=== PATIENT | female | born 1975 | race Hispanic/Latino ===

== ENCOUNTER 2017-07-19 23:51 | Emergency (ER) | payer BC ==
[~2017-07-19] VITALS: Ht 157.5 cm; Wt 99.8 kg
[~2017-07-19 23:51] MED LIST: CARAFATE1 GM/10 ML PO; NEXIUM40 MG PO
[2017-07-20] MEDS ORDERED: SODIUM CHLORIDE 0.9% 1000ML 1,000 ML IV ONE (00:15)
[2017-07-20 00:39] LABS: BASOPHILS % 0.3 % (0.0-1.0); BILIRUBIN,URINE NEGATIVE (NEGATIVE); CLARITY,URINE CLOUDY (CLEAR); COLOR,URINE YELLOW (YELLOW); EOSINOPHILS # (AUTO) 0.1 (0.0-0.4); EOSINOPHILS % 1.2 % (0.0-6.0); HEMATOCRIT 44.5 % (34.2-44.1); HEMOGLOBIN 14.8 g/dL (12.0-16.0); KETONES,URINE NEGATIVE (NEGATIVE); LEUKOCYTE ESTERASE ,URINE NEGATIVE (NEGATIVE); LYMPHOCYTES % 33.1 % (18.0-39.1); MEAN CORPUSCULAR HEMOGLOBIN 28.5 pg (28-32); MEAN CORPUSCULAR HGB CONC 33.3 g/dL (31-35); MEAN CORPUSCULAR VOLUME 85.6 fL (81-99); MONOCYTES # (AUTO) 0.5 (0.2-0.8); MONOCYTES % 5.6 % (4.4-11.3); NEUTROPHILS # (AUTO) 5.3 (2.1-6.9); NEUTROPHILS % 59.6 % (38.7-80.0); NITRITE,URINE NEGATIVE (NEGATIVE); PLATELET COUNT 267 x10e3/uL (140-360); PROTEIN,URINE DIPSTICK NEGATIVE (NEGATIVE); RED CELL DISTRIBUTION WIDTH 13.2 % (11.7-14.4); URINE UROBILINOGEN 1 mg/dL (0.2 - 1)
[2017-07-20 00:51] LABS: BACTERIA,URINE FEW /HPF; EPITHELIAL CELLS,URINE FEW /LPF; WBC,URINE (MAN) 0-5 /HPF (0-5)
[2017-07-20 01:24] LABS: ALANINE AMINOTRANSFERASE 20 IU/L (0-55); ALBUMIN 3.9 g/dL (3.5-5.0); ALKALINE PHOSPHATASE 110 IU/L (40-150); ANION GAP 13.6 mmol/L (8-16); BLOOD UREA NITROGEN 13 mg/dL (7-26); BUN/CREATININE RATIO 14 (6-25); CALCIUM 9.6 mg/dL (8.4-10.2); CARBON DIOXIDE 27 mmol/L (22-29); CHLORIDE 98 mmol/L (98-107); CREATININE, SERUM 0.96 mg/dL (0.57-1.11); EST GLOMERULAR FILTRATION RATE > 60 ML/MIN (60-); GLUCOSE 267 mg/dL (74-118); POTASSIUM 3.6 mmol/L (3.5-5.1); SODIUM 135 mmol/L (136-145)
[2017-07-20 01:36] VITALS: BP 115/73
== END 2017-07-20 01:42 | disposition home or self-care (01) ==
LOC: ER 23:51
DX: E11.65 Type 2 diabetes mellitus with hyperglycemia (principal)
CPT/HCPCS: 36415; 80053; 81001; 82948; 85025; 93005; 99283; J7030

== ENCOUNTER 2018-12-15 17:41 | Inpatient (IN) | payer BC ==
[~2018-12-15] VITALS: Ht 157.5 cm; Wt 92.0 kg
[2018-12-15 18:15] LABS: BILIRUBIN,URINE NEGATIVE (NEGATIVE); CLARITY,URINE SL CLOUDY (CLEAR); COLOR,URINE YELLOW (YELLOW); KETONES,URINE NEGATIVE (NEGATIVE); LEUKOCYTE ESTERASE ,URINE NEGATIVE (NEGATIVE); NITRITE,URINE NEGATIVE (NEGATIVE); PROTEIN,URINE DIPSTICK NEGATIVE (NEGATIVE); URINE UROBILINOGEN 0.2 mg/dL (0.2 - 1)
[2018-12-15 18:16] LABS: PREGNANCY TEST, URINE NEGATIVE (NEGATIVE)
[2018-12-15 18:29] LABS: WBC,URINE (MAN) 0-5 /HPF (0-5)
[2018-12-15 18:30] LABS: BACTERIA,URINE MODERATE /HPF; EPITHELIAL CELLS,URINE MODERATE /LPF
[2018-12-15] MEDS ORDERED: PANTOPRAZOLE 40 MG 10ML VIAL IV ONE (19:04)
[2018-12-15 19:14] LABS: BASOPHILS % 0.3 % (0.0-1.0); EOSINOPHILS # (AUTO) 0.1 (0.0-0.4); EOSINOPHILS % 0.8 % (0.0-6.0); HEMOGLOBIN 15.1 g/dL (12.0-16.0); LYMPHOCYTES # (AUTO) 2.6 (1.0-3.2); LYMPHOCYTES % 22.4 % (18.0-39.1); MEAN CORPUSCULAR HEMOGLOBIN 29.5 pg (28-32); MEAN CORPUSCULAR HGB CONC 33.6 g/dL (31-35); MEAN CORPUSCULAR VOLUME 88.1 fL (81-99); MONOCYTES # (AUTO) 0.5 (0.2-0.8); MONOCYTES % 4.3 % (4.4-11.3); NEUTROPHILS # (AUTO) 8.4 (2.1-6.9); NEUTROPHILS % 71.8 % (38.7-80.0); PLATELET COUNT 291 x10e3/uL (140-360); RED BLOOD COUNT 5.11 x10e6/uL (3.6-5.1); RED CELL DISTRIBUTION WIDTH 12.7 % (11.7-14.4)
[2018-12-15] MEDS ORDERED: DICYCLOMINE HCL 20 MG/2 ML VIAL IM ONE (19:15)
[2018-12-15 19:29] LABS: ALANINE AMINOTRANSFERASE 15 IU/L (0-55); ALBUMIN 4.1 g/dL (3.5-5.0); ALBUMIN/GLOBULIN RATIO 1.1 (0.8-2.0); ALKALINE PHOSPHATASE 84 IU/L (40-150); ANION GAP 15.7 mmol/L (8-16); BLOOD UREA NITROGEN 18 mg/dL (7-26); BUN/CREATININE RATIO 25 (6-25); CALCIUM 10.1 mg/dL (8.4-10.2); CARBON DIOXIDE 26 mmol/L (22-29); CHLORIDE 101 mmol/L (98-107); CREATININE, SERUM 0.73 mg/dL (0.57-1.11); EST GLOMERULAR FILTRATION RATE > 60 ML/MIN (60-); GLUCOSE 103 mg/dL (74-118); POTASSIUM 3.7 mmol/L (3.5-5.1); SODIUM 139 mmol/L (136-145)
[2018-12-15] MEDS ORDERED: SODIUM CHLORIDE 0.9% 1000ML 1,000 ML IV ONE (21:30)
--- NOTE | 2018-12-15 21:41 | Diagnostic Imaging Report ---
EXAM: CT of the abdomen and pelvis WITH contrast HISTORY: Stomach pain, elevated lipase, hiatal hernia COMPARISON: None. TECHNIQUE: The abdomen and pelvis were scanned utilizing a multidetector helical scanner. Coronal and sagittal reformats are provided. PROTOCOL: Routine IV CONTRAST: 100 cc of Isovue-370. ORAL CONTRAST: None, which limits sensitivity and specificity of the exam. RADIATION DOSE: Total DLP: 717.39 mGy*cm Estimated effective dose: (DLP x 0.015 x size factor) Dose modulation, iterative reconstruction, and/or weight based adjustment of the mA/kV was utilized to reduce the radiation dose to as low as reasonably achievable. COMPLICATIONS: None FINDINGS: LOWER THORAX: Diffuse thickening of the distal esophageal wall. HEPATOBILIARY: No mass. No biliary dilation. The gallbladder is contracted, no calcified stone. SPLEEN: No splenomegaly. A 2.1 cm splenule anterior to the spleen. PANCREAS: No focal masses or ductal dilatation. The pancreas appears edematous with fat stranding adjacent to the body and tail. No associated fluid collection. ADRENALS: No discrete adrenal nodule. KIDNEYS/URETERS: No hydronephrosis, stones, or definite solid mass lesions. PELVIC ORGANS/BLADDER: The uterus is anteflexed. A 1.1 cm hypodensity near the right side of the fundus, likely a small fibroid. GI TRACT: No dilation or wall thickening identified. The appendix is normal. PERITONEUM / RETROPERITONEUM: No free air or fluid. LYMPH NODES: No pathologically enlarged lymph node. VESSELS: Unremarkable. BONES and JOINTS: No aggressive osseous lesion or acute fracture. A 1.1 cm nonaggressive sclerotic density within the right sacral ala, likely a small bone island. SOFT TISSUES: Unremarkable. IMPRESSION: 1. Acute pancreatitis, no associated fluid collection. 2. Findings suggestive of esophagitis. 3. Small uterine fibroid. Signed by: Dr. Sylvester Lin D.O., M.M.M. on 12/15/2018 9:38 PM
[2018-12-15] MEDS ORDERED: FENTANYL CITRATE/PF 100MCG/2 ML INJ IV ONE (22:00)
--- NOTE | 2018-12-15 23:12 | NUR ---
REPORT GIVEN TO ELVER ROJAS.
[2018-12-15] MEDS ORDERED: MORPHINE SULFATE INJ 4 MG/ML INJ 1ML IV PRN (23:30)
--- OUTSIDE RECORDS SUMMARY | 2018-12-15 23:38 | XMS REPORT ---
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 Allergies, Adverse Reactions, Alerts This patient has no known allergies or adverse reactions. Medications This patient has no known medications. Results Test Description Test Time Test Comments Text Results Atomic Results Result Comments CT ABDOMEN/PELVIS W 2018-12-15 21:27:00 [place] [address] Patient Name: NINFA LEIGH MR #: [id number] : 1975 Age/Sex: 43/F Req #: [id number] [facility] Physician: Ordered by: JUWAN NUNEZ MD Report #: [id number] Location: ER Room/Bed: Procedure: [id number] CT/CT ABDOMEN/PELVIS W Exam Date: 12/15/18 Exam Time: 2109 REPORT STATUS: Signed EXAM: CT of the abdomen and pelvis WITH contrast HISTORY: Stomach pain, elevated lipase, hiatal hernia COMPARISON: None. TECHNIQUE: The abdomen and pelvis were scanned utilizing a multidetector helical scanner. Coronal and sagittal reformats are provided. PROTOCOL: Routine IV CONTRAST: 100 cc of Isovue-370. ORAL CONTRAST: None, which limits sensitivity and specificity of the exam. RADIATION DOSE: Total DLP: 717.39 mGy*cm Estimated effective dose: (DLP x 0.015 x size factor) Dose modulation, iterative reconstruction, and/or weight based adjustment of the mA/kV was utilized to reduce the radiation dose to as low as reasonably achievable. COMPLICATIONS: None FINDINGS: LOWER THORAX: Diffuse thickening of the distal esophageal wall. HEPATOBILIARY: No mass. No biliary dilation. The gallbladder is contracted, no calcified stone. SPLEEN: No splenomegaly. A 2.1 cm splenule anterior to the spleen. PANCREAS: No focal masses or ductal dilatation. The pancreas appears edematous with fat stranding adjacent to the body and tail. No associated fluid collection. ADRENALS: No discrete adrenal nodule. KIDNEYS/URETERS: No hydronephrosis, stones, or definite solid mass lesions. PELVIC ORGANS/BLADDER: The uterus is anteflexed. A 1.1 cm hypodensity near the right side of the fundus, likely a small fibroid. GI TRACT: No dilation or wall thickening identified. The appendix is normal. PERITONEUM / RETROPERITONEUM: No free air or fluid. LYMPH NODES: No pathologically enlarged lymph node. VESSELS: Unremarkable. BONES and JOINTS: No aggressive osseous lesion or acute fracture. A 1.1 cm nonaggressive sclerotic density within the right sacral ala, likely a small bone island. SOFT TISSUES: Unremarkable. IMPRESSION: 1. Acute pancreatitis, no associated fluid collection. 2. Findings suggestive of esophagitis. 3. Small uterine fibroid. Signed by: Dr. Steph Lin D.O., M.M.M. on 12/15/2018 9:38 PM Dictated By: STEPH LIN DO 37 Transcribed By: KRISTINE on 12/15/182137 COPY TO: JUWAN NUNEZ MD
[2018-12-15] MEDS ORDERED: IOPAMIDOL 370 MG/ML 200 ML INFUS..BTL INJ ONE (23:48)
[2018-12-15] MEDS ORDERED: SODIUM CHLORIDE 0.9% 50ML 50 ML ONE (23:48)
[2018-12-16] VITALS (9 sets, daily range): BP systolic 87–114; BP diastolic 50–82
[2018-12-16] MEDS: ONDANSETRON HCL INJ 2MG/ML 2ML 2 MG/ML VIAL IV PRN
--- NOTE | 2018-12-16 00:13 | NUR ---
RECEIVED PATIENT AAOX3, AMB., REPORTS PAIN TO LUQ OF 10- RECENTLY MEDICATED FOR PAIN IN ER. SKIN INTACT. PATIENT ON 2L/NC. IV TO LEFT WRIST 22G, NS @ 125ML/HR. RESP EVEN AND UNLABORED. UPDATED PATIENT ON PLAN OF CARE, PATIENT AGREED. REMINDED PATIENT OF NPO STATUS, PATIENT VERBALIZED UNDERSTANDING. NO NEEDS VOICED AT THIS TIME. BED LOCKED AND IN LOWEST POSITION, CALL LIGHT WITHIN EASY REACH.
--- NOTE | 2018-12-16 01:15 | NUR ---
PATIENT C/O PAIN AFTER 1 HOUR OF RECEIVING PRN MORPHINE. SPOKE WITH DR. AGUERO, ORDERS TO CHANGE FREQUENCY TO Q3 HOURS. AND ORDERS RECEIVED GIVE X1 TORADOL IV. ORDERS TO BE ENTERED AND IMPLEMENTED.
[2018-12-16] MEDS ORDERED: KETOROLAC TROMETHAMINE 30 MG/ML VIAL IV STA (01:20)
[2018-12-16] MEDS ORDERED: MORPHINE SULFATE INJ 4 MG/ML INJ 1ML IV PRN (01:30)
[2018-12-16 05:58] LABS: BASOPHILS % 0.4 % (0.0-1.0); EOSINOPHILS # (AUTO) 0.1 (0.0-0.4); EOSINOPHILS % 1.4 % (0.0-6.0); HEMATOCRIT 40.6 % (34.2-44.1); HEMOGLOBIN 13.3 g/dL (12.0-16.0); LYMPHOCYTES # (AUTO) 3.3 (1.0-3.2); MEAN CORPUSCULAR HEMOGLOBIN 29.4 pg (28-32); MEAN CORPUSCULAR HGB CONC 32.8 g/dL (31-35); MEAN CORPUSCULAR VOLUME 89.8 fL (81-99); MONOCYTES # (AUTO) 0.6 (0.2-0.8); MONOCYTES % 5.5 % (4.4-11.3); NEUTROPHILS # (AUTO) 6.2 (2.1-6.9); NEUTROPHILS % 60.3 % (38.7-80.0); PLATELET COUNT 252 x10e3/uL (140-360); RED BLOOD COUNT 4.52 x10e6/uL (3.6-5.1); RED CELL DISTRIBUTION WIDTH 12.9 % (11.7-14.4)
[2018-12-16 06:16] LABS: ALANINE AMINOTRANSFERASE 11 IU/L (0-55); ALBUMIN 3.4 g/dL (3.5-5.0); ALBUMIN/GLOBULIN RATIO 1.1 (0.8-2.0); ALKALINE PHOSPHATASE 68 IU/L (40-150); ANION GAP 10.4 mmol/L (8-16); BLOOD UREA NITROGEN 15 mg/dL (7-26); BUN/CREATININE RATIO 21 (6-25); CALCIUM 8.8 mg/dL (8.4-10.2); CARBON DIOXIDE 28 mmol/L (22-29); CHLORIDE 108 mmol/L (98-107); EST GLOMERULAR FILTRATION RATE > 60 ML/MIN (60-); GLUCOSE 102 mg/dL (74-118); MAGNESIUM 2.3 MG/DL (1.3-2.1); PHOSPHORUS 4.1 MG/DL (2.3-4.7); POTASSIUM 4.4 mmol/L (3.5-5.1); SODIUM 142 mmol/L (136-145)
--- NOTE | 2018-12-16 07:00 | NUR ---
report given to oncoming nurse, patient stable condition.
--- NOTE | 2018-12-16 07:30 | NUR ---
TELEPHONED MD FISHER PER PT REQUEST , "PAIN MEDIATION IS NOT HELPING", AWAITING CALL BACK
[2018-12-16] MEDS: SODIUM CHLORIDE 0.9% 1000ML 1,000 ML IV SCH ×3 (07:42→15:15)
[2018-12-16] MEDS: KETOROLAC TROMETHAMINE 30 MG/ML VIAL IV PRN ×3 (08:45→20:14)
--- NOTE | 2018-12-16 12:30 | NUR ---
MD AGUERO INTO SEE PT, DISCUSSED POC
--- NOTE | 2018-12-16 16:09 | History and Physical ---
HISTORY OF PRESENT ILLNESS: The patient is essentially a 43-year-old female, who has a past medical history negative for any significant condition except for diabetes mellitus type 2, who came to the hospital complaining of abdominal pain and vomiting. She was found to have acute pancreatitis, started on n.p.o., IV fluids, and pain medication. REVIEW OF SYSTEMS: CARDIOVASCULAR: No chest pain or palpitation. RESPIRATORY: No shortness of breath. No cough. GASTROINTESTINAL: She had nausea. She has vomiting. No diarrhea. She had abdominal pain. GENITOURINARY: No frequency. No dysuria. ALLERGIES: NOT ALLERGIC TO ANY MEDICATION. SOCIAL HISTORY: She drinks occasionally. She smokes occasionally. PHYSICAL EXAMINATION: HEART: Showed regular rhythm. Normal S1 and S2 sound. LUNGS: Clear bilaterally. ABDOMEN: Soft. Minimal tenderness in epigastric area. EXTREMITIES: Show no evidence of cyanosis or hematoma. VITAL SIGNS: Blood pressure 92/58, temperature 36.5, heart rate 61 per minute, respiratory rate 15 per minute, and oxygen saturation 99%. LABORATORY DATA: On the BMP; sodium 142, potassium 4.4, chloride 108, CO2 28, BUN 15, creatinine 0.70, and glucose 102. CBC; white blood count 10.3, hemoglobin 13.3, hematocrit 40.6, and platelet count 252,000. AST 11, ALT 11, total bilirubin 0.6, alkaline phosphatase 68, lipase 456. IMPRESSION: 1. Acute pancreatitis. 2. Uncontrolled diabetes mellitus type 2. 3. Obesity. PLAN OF TREATMENT: P.o. IV fluids. Continue pain control. Continue monitoring CMP and lipase level. MD CHIOMA Hunt/MANDA /[id number]
--- NOTE | 2018-12-16 16:37 | NUR ---
Nutrition Screen Note RD Recommendation for Physician: 1. Advance diet as tolerated to low fat diet Plan of Care: RD following, monitoring for tolerance and adequacy, diet education Nutrition reason for involvement: Nutrition Risk Trigger MST Primary Diagnose(s): Pancreatitis PMH: Acute pancreatitis, Diabetes Ht: 62in Wt: 183lbs BMI: 33.46 kg/m2 IBW: 110lbs +/- 10% RD Assessment: (12/16) Chart reviewed. Labs and meds reviewed. 43 y/o F, admitted for pancreatitis. Lipase was 456 on 12/15. Visited pt in the room, family at bedside. IVF running at 125mL/hr. Patient currently NPO. Pt reported following keto diet prior to admission. Noted abdominal pain and diarrhea during the past week. No significant recent weight loss noted. RD provided information on pancreatitis low-fat diet and pt was agreeable. All questions were answered, will continue to monitor and follow. Current Diet: NPO Malnutrition Evaluation (12/16) The patient does not meet criteria for a specified degree of malnutrition at this time. Will re-evaluate at follow-up as appropriate. Diet Education Needs Assessment: Diet education indicated, pt was agreeable. Learner(s): pt and family members Time spent: 20minutes Barriers: No barriers identified. Cultural/Language Modifications: No cultural/language modifications noted. Pt speaks Lao. Readiness: Acceptance Method: Handout, explanation Topics: Pancreatitis low fat diet Understanding/Compliance: Expect fair understanding/compliance from pt. Will benefit from reinforcement. Nutrition Care Level: Moderate Signed: Selina ARDON
--- NOTE | 2018-12-16 23:46 | NUR ---
called answering service of dr Munson, making sure he aware of consult also need order for pain medicine. awaiting for call back.
--- NOTE | 2018-12-16 23:57 | NUR ---
dr Terrell called back, stated he will come to see patient in the morning, no order at this time.
[2018-12-17] VITALS (9 sets, daily range): BP systolic 93–112; BP diastolic 56–72
[2018-12-17] MEDS: KETOROLAC TROMETHAMINE 30 MG/ML VIAL IV PRN ×4 (01:30→20:19)
[2018-12-17] MEDS: SODIUM CHLORIDE 0.9% 1000ML 1,000 ML IV SCH ×4 (01:31→17:02)
[2018-12-17 05:58] LABS: ALANINE AMINOTRANSFERASE 10 IU/L (0-55); ALBUMIN 3.1 g/dL (3.5-5.0); ALKALINE PHOSPHATASE 70 IU/L (40-150); BLOOD UREA NITROGEN 8 mg/dL (7-26); BUN/CREATININE RATIO 12 (6-25); CALCIUM 8.4 mg/dL (8.4-10.2); CARBON DIOXIDE 25 mmol/L (22-29); CHLORIDE 108 mmol/L (98-107); CREATININE, SERUM 0.68 mg/dL (0.57-1.11); EST GLOMERULAR FILTRATION RATE > 60 ML/MIN (60-); GLUCOSE 85 mg/dL (74-118); LIPASE 78 U/L (8-78); SODIUM 140 mmol/L (136-145)
--- NOTE | 2018-12-17 10:30 | NUR ---
MD TURNER INTO SEE PT
[2018-12-17] MEDS ORDERED: PANTOPRAZOLE SOD 40 MG TABEC PO ONE (11:00)
--- NOTE | 2018-12-17 12:23 | Progress Note ---
DATE: Internal Medicine Progress Note SUBJECTIVE: The patient is feeling better. PHYSICAL EXAMINATION: VITAL SIGNS: Blood pressure 109/62, temperature , heart rate 86 per minute, respiratory rate 15 per minute, oxygen saturation 100%. HEART: Regular rhythm. Normal S1, S2 sound. LUNGS: Clear bilaterally. ABDOMEN: Soft, nontender. No distention. No visceromegaly. LABORATORY DATA: On the BMP; sodium 140, potassium 4.0, chloride 108, CO2 25, BUN 8, creatinine 0.66, glucose 85. On CBC; white count 43681, hemoglobin 13.3, hematocrit 40.6, platelet count 252,000. AST 10, ALT 10, total bilirubin is 0.9, alkaline phosphatase 77. IMPRESSION: 1. Acute pancreatitis, which is resolving. The last lipase was 78. 2. History of hypertension. We are going to continue monitoring lipase and liver function tests, diet, lipase level tomorrow. Tentative discharge tomorrow. MD CHIOMA Hunt/MANDA /[id number]
--- NOTE | 2018-12-17 15:35 | NUR ---
TELEPHONED MD AGUERO , PT C/O PAIN , PAIN MEDIATION ORDERED NOT LASTING UNTIL DUE, SPOKE WITH RAJI , AWAITING CALL BACK
[2018-12-17] MEDS: HYDROCODONE/APAP 5MG-325MG TAB PO PRN ×3 (15:58→23:29)
--- NOTE | 2018-12-17 18:08 | Consultation ---
DATE OF CONSULTATION: 12/17/2018 REASON FOR CONSULTATION: Pancreatitis. HISTORY OF PRESENT ILLNESS: Karen is a pleasant 43-year-old female with apparently, diet-controlled diabetes mellitus, consulted in the emergency room, complaining of abdominal pain. The patient claims that she started having pain earlier this week, changed her diet, the pain was mainly in the abdomen, the periumbilical area, radiating to the back, with no nausea or vomiting. The pain persisted, leading for her to come to the emergency room. She was found to have pancreatitis, admitted, and a GI consult has been placed. She denies any alcohol abuse, denies any new diabetic medications, denies any recent travelling, previous workup for ultrasound of the gallbladder was negative. Since admission, she has improved and the pain has also improved. PAST MEDICAL HISTORY: As in HPI. FAMILY HISTORY: Noncontributory. SOCIAL HISTORY: She does not smoke or drink. REVIEW OF SYSTEMS: As in HPI. ALLERGIES: NO KNOWN DRUG ALLERGIES. PHYSICAL EXAMINATION: VITAL SIGNS: Well within normal limits. GENERAL: Pleasant, middle-aged female, in no distress. HEENT: Unremarkable. NECK: Supple. LUNGS: Clear. HEART: Regular rate and rhythm. ABDOMEN: Soft with mild periumbilical discomfort. No rebound or guarding. Bowel sounds are normal. RECTAL: Deferred. LABORATORY DATA: On admission, white count was 11,000, hemoglobin 15, hematocrit 45. Repeat labs today show a hemoglobin of 13, hematocrit of 40 with a white count of 10,000. Blood chemistry on admission, electrolytes were normal. Liver function tests were normal. Lipase on admission was 456. Repeat lipase today was 78. Lipid panel that was done today was unremarkable. IMAGING STUDIES: CT scan of abdomen and pelvis showed evidence of acute pancreatitis with no fluid collection. There was also evidence of possible esophagitis. ASSESSMENT: Middle-aged female, admitted with acute pancreatitis, probably idiopathic. Gallbladder disease has not been completely ruled out. PLAN: 1. We will start liquid diet. 2. We will check abdominal ultrasound. 3. If pain is better and tolerates p.o., she can probably be discharged home in a.m. Ton Terrell MD FES/MODL /[id number]
--- NOTE | 2018-12-17 20:33 | NUR ---
PATIENT CALLED FOR SOMETHING FOR PAIN, SHE STATED THAT SHE GET NORCO BY MOUTH AROUND 4 PM. PAIN LEVEL AT THIS TIME IS 6/10,TORADOL GIVEN, WILL CONTINUE TO MONITOR.
[2018-12-18] VITALS: BP 118/62
[2018-12-18 04:00] VITALS: BP 111/63
[2018-12-18 06:36] LABS: BASOPHILS % 0.3 % (0.0-1.0); EOSINOPHILS # (AUTO) 0.2 (0.0-0.4); EOSINOPHILS % 2.1 % (0.0-6.0); HEMATOCRIT 35.6 % (34.2-44.1); HEMOGLOBIN 11.6 g/dL (12.0-16.0); LYMPHOCYTES # (AUTO) 2.2 (1.0-3.2); MEAN CORPUSCULAR HEMOGLOBIN 29.6 pg (28-32); MEAN CORPUSCULAR HGB CONC 32.6 g/dL (31-35); MEAN CORPUSCULAR VOLUME 90.8 fL (81-99); MONOCYTES # (AUTO) 0.6 (0.2-0.8); MONOCYTES % 6.8 % (4.4-11.3); NEUTROPHILS # (AUTO) 6.3 (2.1-6.9); NEUTROPHILS % 67.4 % (38.7-80.0); PLATELET COUNT 229 x10e3/uL (140-360); RED BLOOD COUNT 3.92 x10e6/uL (3.6-5.1); RED CELL DISTRIBUTION WIDTH 12.9 % (11.7-14.4)
[2018-12-18 06:57] LABS: ALANINE AMINOTRANSFERASE 19 IU/L (0-55); ALBUMIN 2.9 g/dL (3.5-5.0); ALKALINE PHOSPHATASE 72 IU/L (40-150); ANION GAP 9.6 mmol/L (8-16); BLOOD UREA NITROGEN < 5 mg/dL (7-26); CALCIUM 8.6 mg/dL (8.4-10.2); CARBON DIOXIDE 25 mmol/L (22-29); CHLORIDE 105 mmol/L (98-107); CREATININE, SERUM 0.66 mg/dL (0.57-1.11); EST GLOMERULAR FILTRATION RATE > 60 ML/MIN (60-); GLUCOSE 99 mg/dL (74-118); POTASSIUM 3.6 mmol/L (3.5-5.1); SODIUM 136 mmol/L (136-145)
[2018-12-18 07:06] LABS: BUN/CREATININE RATIO 8 (6-25)
[2018-12-18 07:33] LABS: ALBUMIN 2.9 g/dL (3.5-5.0); BILIRUBIN,DIRECT 0.4 mg/dL (0.0-0.5)
[2018-12-18 08:00] VITALS: BP 99/54
[2018-12-18] MEDS: SODIUM CHLORIDE 0.9% 1000ML 1,000 ML IV SCH ×3 (08:14→23:25)
--- NOTE | 2018-12-18 10:15 | Diagnostic Imaging Report ---
Abdominal ultrasound. History: Pancreatitis. Comparison: CT 12/15/2018. Discussion: Transverse and longitudinal images of the abdomen were obtained demonstrating a liver of normal size and echogenicity measuring 16.1 cm in length. The portal vein is patent with hepatopetal flow and is within normal limits measuring 11 mm in diameter. The biliary tree is within normal limits with the common bile duct measuring 6 mm in diameter. The gallbladder is filled with multiple shadowing stones. The gallbladder wall measures 6 mm in thickness.. The sonographic Knapp's sign was negative. The kidneys are normal in size and echogenicity bilaterally without evidence of hydronephrosis, stones, or mass. The right kidney measures 10.7 cm and the left kidney measures 10.9 cm in length. The spleen is normal in size and appearance measuring 11.4 cm in length. The pancreas was mostly obscured by overlying bowel gas, but does appear echogenic in the visible head and proximal body. The abdominal aorta and IVC are within normal limits. There is no evidence of free fluid. IMPRESSION: Cholelithiasis with gallbladder wall thickening, but negative sonographic Knapp sign. Pancreas not well visualized. Otherwise unremarkable abdominal ultrasound. Signed by: Bharat Griffiths on 12/18/2018 10:12 AM
[2018-12-18 11:56] VITALS: BP 103/57
--- NOTE | 2018-12-18 16:00 | NUR ---
PT OFF FOR HIDA SCAN
--- NOTE | 2018-12-18 17:53 | NUR ---
SPOKE WITH MD ALMONTE WHO ORDERED PT TO HAVE 3MG OF MORPHINE NOW FOR A BETTER VIEW OF GALL BLADDER DURING HIDA SCAN WILL ADMINISTER DOSE AT NUC MED WHEN MED VERIFIED
[2018-12-18] MEDS ORDERED: MORPHINE SULFATE INJ 4 MG/ML INJ 1ML IV ONE (18:20)
[2018-12-18 20:00] VITALS: BP 131/61
--- NOTE | 2018-12-18 20:00 | NUR ---
Patient came back from procedure. Alert and responsive. No complain at this time.
--- NOTE | 2018-12-18 20:29 | Diagnostic Imaging Report ---
HIDA Scan with Morphine Challenge Clinical information: 43 F with pancreatitis Report: Following the administration of 6.6 of Tc-99m mebrofenin, dynamic images of the abdomen in the anterior projection were obtained through 60 minutes. At 2.5 hours post administration of the tracer, morphine sulfate 3 mg was administered via slow IV push and additional images were obtained through 30 minutes. Perfusion to the liver is normal. Extraction of tracer by the liver parenchyma is normal. Tracer appears promptly within the biliary tract. Tracer is seen within the small bowel by 6 minutes. The gallbladder does not fill during the initial 60 minutes of dynamic imaging nor by 2.5 hours. Following administration of morphine, the gallbladder also does not fill. Impression: Absence of filling of the gallbladder, even following administration of morphine, is compatible with the diagnosis of acute cystic duct obstruction/acute cholecystitis. Signed by: Dr. Liane Mcallister M.D. on 12/18/2018 8:25 PM
--- NOTE | 2018-12-18 20:30 | NUR ---
Paged Dr. Garcia for diet orders. Waiting for response.
[2018-12-18 21:37] VITALS: BP 131/61
[2018-12-18] MEDS: KETOROLAC TROMETHAMINE 30 MG/ML VIAL IV PRN (21:44)
--- NOTE | 2018-12-18 23:01 | NUR ---
Page Dr. Castelan for this consultation.
--- NOTE | 2018-12-18 23:13 | NUR ---
Spoke with Dr. Townsend Patient can have clear liquids tonight and will be NPO after midnight until seen by Dr. Shelley.
--- NOTE | 2018-12-18 23:14 | NUR ---
Spoke with Dr. Shelley thru phone regarding consultation.
[2018-12-19] VITALS (8 sets, daily range): BP systolic 92–115; BP diastolic 52–68
--- NOTE | 2018-12-19 01:10 | Progress Note ---
DATE: 12/18/2018 GI Progress Report SUBJECTIVE: The patient reports improvement in abdominal pain. Denies any nausea or vomiting. REVIEW OF SYSTEMS: GENERAL: No fever or chills. CVS: No chest pain or palpitations. RESPIRATORY: No cough or expectoration. MEDICATIONS: Inpatient medication list reviewed. She is on Ketoralac, hydrocodone/acetaminophen, Zofran and normal saline at 125 mL an hour. PHYSICAL EXAMINATION: VITAL SIGNS: Temperature 97.8, pulse 63, respirations 18, blood pressure 131/61, oxygen saturation 98% on room air. GENERAL: Not in any acute distress. Obese body habitus. HEENT: Oral mucosa is moist. ABDOMEN: Soft. Mild palpable right upper quadrant tenderness on deep palpation without rebound, rigidity, or guarding. No mass or hernia. Bowel sounds present. LABORATORY DATA: Sodium 139, potassium 3.6, chloride 106, bicarb 25, BUN 5, and creatinine 0.66. Liver enzymes normal. Ultrasound of the abdomen showed cholelithiasis with gallbladder wall thickening, negative sonographic Knapp sign. Pancreas not visualized. Otherwise unremarkable abdominal ultrasound. HIDA scan showed absence of filling of gallbladder, even following administration of morphine, is compatible with diagnosis of acute cystic duct obstruction/acute cholecystitis. IMPRESSION: 1. Gallstone pancreatitis, which seems to have resolved. 2. Acute cholecystitis proven with HIDA scan. PLAN: Continue present supportive care. Hold onto oral feeds. Surgery consult. Moses Townsend MD SA/MANDA /[id number]
--- NOTE | 2018-12-19 07:00 | NUR ---
PT RESTING IN BED COMFORTABLY AA0X3 DENIES PAIN. PT FAM AT BEDSIDE PT IS ON IV FLUIDS TO THE LEFT WRIST 22 SITE IS CLEAN AND DRY PT IS NPO FOR POSSIBLE SURGERY TODAY. PT AWARE WAITING ON GOMEZ TO SEE PT AT THIS TIME WILL CONTINUE TO MONITOR PT CLOSELY SIDE RAILSX2, BED WHEELS LOCKED, CALL LIGHT IS WITHIN EASY REACH INSTRUCTED TO CALL FOR ASSISTANCE IF NEEDED
[2018-12-19] MEDS: SODIUM CHLORIDE 0.9% 1000ML 1,000 ML IV SCH ×3 (07:25→17:50)
--- NOTE | 2018-12-19 11:13 | Consultation ---
DATE OF CONSULTATION: 12/19/2018 CHIEF COMPLAINT: Abdominal pain. HISTORY OF PRESENT ILLNESS: The patient is a 43-year-old female who was admitted four days ago with abdominal pain in the epigastric area with nausea and vomiting and was found to have acute pancreatitis. The patient is a social drinker only. She was found to have gallstone on ultrasound of the gallbladder. PAST MEDICAL HISTORY: Positive for diabetes. SURGICAL HISTORY: Positive for ovarian cyst removal. ALLERGIES: SHE HAS NO DRUG ALLERGIES. SOCIAL HABITS: As mentioned. She is a social drinker and smoker a few cigarettes daily. REVIEW OF SYSTEMS: No chest pain or shortness of breath. PHYSICAL EXAMINATION: VITAL SIGNS: Stable. Afebrile. GENERAL: She is awake and alert, in moderate discomfort. HEENT: Sclerae nonicteric. NECK: Supple. LUNGS: Clear. HEART: Regular rate and rhythm. ABDOMEN: Soft with mild guarding in the epigastric area. No rebound. LABORATORY DATA: White cell count is 9, hemoglobin 11.6, and creatinine of 0.6. Liver function tests within normal limits with lipase of 39. Ultrasound of gallbladder showed gallbladder stone with thickened wall. HIDA scan showed no visualization of gallbladder. ASSESSMENT: Gallstone pancreatitis, which has improved. PLAN: Laparoscopic cholecystectomy prior to discharge. Attendant risks discussed. Devyn Castelan MD DNLisandra/MODL /[id number]
[2018-12-19] MEDS ORDERED: BUPIVACAINE/EPINEPHRINE 0.25% 10 ML SDV INJ ONE (12:25)
[2018-12-19] MEDS ORDERED: BUPIVACAINE 0.25%/EPI 30ML SDV INJ ONE (12:26)
--- NOTE | 2018-12-19 13:23 | NUR ---
PT OFF UNIT FOR SX AT THIS TIME
[2018-12-19] MEDS ORDERED: MORPHINE SULFATE INJ 4 MG/ML INJ 1ML IV PRN (14:45)
[2018-12-19] MEDS ORDERED: HYDROMORPHONE 2MG/ML 2 MG/ML ML ONE (15:06)
--- NOTE | 2018-12-19 15:44 | Operative Report ---
DATE OF PROCEDURE: 12/19/2018 SURGEON: Devyn Castelan MD PREOPERATIVE DIAGNOSIS: Gallstone pancreatitis. POSTOPERATIVE DIAGNOSIS: Gallstone pancreatitis. OPERATIVE PROCEDURE: Laparoscopic cholecystectomy. ADVANCED PRACTICE RN: None. ANESTHESIA: General. INDICATION: A 43-year-old female with history of abdominal pain and pancreatitis with elevated lipase. The patient has gallstone on ultrasound. Pancreatitis has resolved with normalization with liver function tests. The patient consented for laparoscopic cholecystectomy. Attendant risks discussed. PROCEDURE FINDING: Cholelithiasis and cholecystitis. DESCRIPTION OF PROCEDURE: The patient was brought to the OR intubated. The abdomen prepped with alcohol and draped in sterile fashion. An infraumbilical incision is made and a 10 mm port inserted, insufflation then began. Other port site placed in midepigastric and right upper quadrant. Gallbladder chronically inflamed fundus retracted in cephalad direction. Next, the gallbladder retracted laterally with blunt dissection, we isolated the cystic artery. Cystic duct was noted and the junction of common bile duct was noted before triple clipping the cystic artery and cystic duct and divided them between clips. The gallbladder then detached from the liver with cauterization and the gallbladder was taken out through the umbilical ports. Operative field irrigated. Hemostasis achieved. All ports removed under direct vision. Fascia closure with 0 Vicryl and skin then closed with subcuticular stitch. The patient was extubated and transported to recovery room. ESTIMATED BLOOD LOSS: 20 mL. Devyn Castelan MD DNL/MODL /[id number]
--- NOTE | 2018-12-19 15:49 | NUR ---
RECEIVED REPORT FROM SULTANA PT HAS GARY CHILEL AWAITING FOR PT TO ARRIVE BACK TO FLOOR
[2018-12-19] MEDS: ONDANSETRON HCL INJ 2MG/ML 2ML 2 MG/ML VIAL IV PRN (17:07)
[2018-12-19] MEDS ORDERED: PROMETHAZINE 12.5MG/ NACL 0.9% 12.5 MG/50 ML BAG IV PRN (18:15)
[2018-12-19] MEDS ORDERED: ATROPINE SULFATE 1 MG/ML VIAL ONE (18:42)
[2018-12-19] MEDS ORDERED: NEOSTIGMINE 5 MG/5ML SYR ONE (18:42)
[2018-12-19] MEDS ORDERED: ONDANSETRON HCL INJ 2MG/ML 2ML 2 MG/ML VIAL ONE (18:42)
[2018-12-19] MEDS ORDERED: PROPOFOL IV EMULSION 10 MG/ML 20 ML VIAL ONE (18:42)
[2018-12-19] MEDS ORDERED: ROCURONIUM BROMIDE 10 MG/ML 5ML VIAL ONE (18:42)
[2018-12-19] MEDS ORDERED: CEFAZOLIN SOD 1 GM VIAL ONE (18:42)
[2018-12-19] MEDS ORDERED: DEXAMETHASONE SOD PHOS INJ 4 MG/ML VIAL ONE (18:42)
[2018-12-19] MEDS ORDERED: SEVOFLURANE INHAL SOLN 250 ML PEN BTL ONE (18:42)
[2018-12-19] MEDS ORDERED: LIDOCAINE HCL 2% LOCAL INJ 5 ML SDV VIAL INJ ONE (18:42)
[2018-12-19] MEDS ORDERED: FENTANYL CITRATE/PF 100MCG/2 ML INJ ONE (18:45)
[2018-12-19] MEDS ORDERED: MIDAZOLAM HCL 2 MG/2 ML VIAL ONE (18:45)
[2018-12-19] MEDS ORDERED: KETAMINE HCL INJ 50 MG/ML 10 ML VIAL ONE (18:45)
--- NOTE | 2018-12-19 21:30 | NUR ---
Patient blood pressure rechecked 95/53 mmhg. Patient is asymptomatic.
[2018-12-19] MEDS: KETOROLAC TROMETHAMINE 30 MG/ML VIAL IV PRN (23:55)
--- NOTE | 2018-12-20 00:16 | Progress Note ---
DATE: 12/19/2018 SUBJECTIVE: The patient underwent laparoscopic cholecystectomy today. She has been started on clear liquids postoperatively. The patient has not passed any flatus. No nausea or vomiting. She is just having incisional pain. REVIEW OF SYSTEMS: GENERAL: No fever or chills. CVS: No chest pain or palpitation. RESPIRATORY: No cough or expectoration. MEDICATIONS: Reviewed as per MAR. PHYSICAL EXAMINATION: VITAL SIGNS: Temperature 97.2, pulse 67, respirations 18, blood pressure 96/52 to 115/66, oxygen saturation 100% on room air. GENERAL: Not in any acute distress. HEENT: Oral mucosa is moist. ABDOMEN: Soft. Incisional tenderness in right upper quadrant. No rebound, rigidity, or guarding. Bowel sounds hypoactive. LABORATORY DATA: WBC 9.41, hemoglobin 11.6, hematocrit 35.6, MCV 90.8, platelet count 229. Sodium 136, potassium 3.6, chloride 105, bicarb 25, BUN 5, creatinine 0.66, glucose 99. IMPRESSION: 1. Acute cholecystitis status post laparoscopic cholecystectomy. 2. Biliary pancreatitis has resolved. PLAN: Postoperative care as per Surgery. I will follow her in my office in 1 to 2 weeks post discharge. Moses Townsend MD SA/MANDA /[id number]
--- NOTE | 2018-12-20 02:23 | NUR ---
Patient has no complain of nausea and vomiting after taking clear liquids.
[2018-12-20 04:00] VITALS: BP 98/54
--- NOTE | 2018-12-20 06:07 | NUR ---
BP rechecked and revealed 111/53 mmhg. Patient ambulates to the restroom no complain of dizziness.
[2018-12-20] MEDS: KETOROLAC TROMETHAMINE 30 MG/ML VIAL IV PRN ×3 (06:15→20:11)
--- NOTE | 2018-12-20 07:00 | NUR ---
BEDSIDE SHIFT REPORT FROM STUART LACEY. PT DENIES NEEDS AT THIS TIME.
[2018-12-20 07:15] VITALS: BP 100/58
[2018-12-20 08:00] VITALS: BP 100/58
[2018-12-20] MEDS: SODIUM CHLORIDE 0.9% 1000ML 1,000 ML IV SCH ×3 (08:09→23:25)
[2018-12-20 11:50] VITALS: BP 112/57
--- NOTE | 2018-12-20 13:44 | NUR ---
Nutrition Screen Note RD Recommendation for Physician: 1. Advance diet as tolerated to low fat diet Plan of Care: RD following, monitoring for tolerance and adequacy, diet education Nutrition reason for involvement: Follow up Primary Diagnose(s): Pancreatitis PMH: Acute pancreatitis, Diabetes Ht: 62in Wt: 183lbs BMI: 33.46 kg/m2 IBW: 110lbs +/- 10% RD Assessment: (12/20) S/p lap cholecystectomy. POD 2. Diet has been advanced to full liquid. No GI complains reported + flatus. Diet information was provided. (12/16) Chart reviewed. Labs and meds reviewed. 43 y/o F, admitted for pancreatitis. Lipase was 456 on 12/15. Visited pt in the room, family at bedside. IVF running at 125mL/hr. Patient currently NPO. Pt reported following keto diet prior to admission. Noted abdominal pain and diarrhea during the past week. No significant recent weight loss noted. RD provided information on pancreatitis low-fat diet and pt was agreeable. All questions were answered, will continue to monitor and follow. Current Diet: Full liquid Malnutrition Evaluation (12/16) The patient does not meet criteria for a specified degree of malnutrition at this time. Will re-evaluate at follow-up as appropriate. Diet Education Needs Assessment: (12/16) / (12/20) Diet education indicated, pt was agreeable. Learner(s): pt and family members Time spent: 20minutes Barriers: No barriers identified. Cultural/Language Modifications: No cultural/language modifications noted. Pt speaks Bulgarian. Readiness: Acceptance Method: Handout, explanation Topics: low fat diet Understanding/Compliance: Expect fair understanding/compliance from pt. Will benefit from reinforcement. Nutrition Care Level: Low Signed: Eloisa Tovar, MS, RD, LD
[2018-12-20 15:39] VITALS: BP 102/59
--- NOTE | 2018-12-20 20:05 | NUR ---
Received change of shift report from AM nurse. Walking rounds completed.
[2018-12-20] MEDS: HYDROCODONE/APAP 5MG-325MG TAB PO PRN (22:00)
--- NOTE | 2018-12-20 23:44 | NUR ---
Dr Pravin Garcia called due to patient IV infiltrated(Pt doesnt want IV replaced). Patient has a temp of 99.4 and tylenol is needed. Patient given [place]. Waiting for call back from .
[2018-12-21 00:27] VITALS: BP 100/54
--- NOTE | 2018-12-21 00:42 | Progress Note ---
DATE: 12/20/2018 GI Consult Note. SUBJECTIVE: The patient is tolerating oral diets, it has been advanced to full liquid. She also has had two small bowel movements. REVIEW OF SYSTEMS: GENERAL: Complaining about low-grade temp, no chills. CARDIOVASCULAR SYSTEM: No chest pain or palpitations. RESPIRATORY: No cough or expectoration. MEDICATION: Ketoralac as needed, morphine sulfate as needed, Zofran as needed, and normal saline at 125 mL an hour. PHYSICAL EXAMINATION: VITAL SIGNS: Temperature 96.6, pulse 67, respirations 20, blood pressure 102/56, and oxygen saturation 97% on room air. GENERAL: Not in any acute distress. Oral mucosa is moist. Anicteric sclerae. ABDOMEN: Soft. Mild palpable right upper quadrant incisional tenderness without rebound, rigidity, or guarding. Positive bowel sounds. LABORATORY DATA: WBC 9.41, hemoglobin 11.6, hematocrit 35.6, MCV 90.8, and platelet count 229. Sodium 136, potassium 3.6, chloride 105, bicarb 25, BUN 5, and creatinine 0.66. IMPRESSION: 1. Gallstone pancreatitis, resolved. 2. Acute cholecystitis status post laparoscopic cholecystectomy, postoperative day #1. PLAN: Postop care as per Surgery. Follow gallbladder pathology results. The patient has my business card, she will follow up with me in my office in two weeks. Moses Townsend MD SA/MANDA /[id number]
--- NOTE | 2018-12-21 01:00 | NUR ---
No call back from Dr Pravin Garcia. Patient is drinking well. No IV assess. Continue monitor.
[2018-12-21 04:55] VITALS: BP 106/60
[2018-12-21] MEDS: SODIUM CHLORIDE 0.9% 1000ML 1,000 ML IV SCH (04:58)
--- NOTE | 2018-12-21 06:20 | NUR ---
Patient resting quilt in bed with no c/o at this time. No c/o at this time.
--- NOTE | 2018-12-21 07:10 | NUR ---
pt alert and ambulatory, no s/s of distress noted at this time, pt able to make needs known, call light in reach.
[2018-12-21 07:11] VITALS: BP 119/71
[2018-12-21 08:50] VITALS: BP 119/71
[2018-12-21] MEDS: HYDROCODONE/APAP 5MG-325MG TAB PO PRN (11:06)
[2018-12-21 11:19] VITALS: BP 122/84
--- NOTE | 2018-12-21 12:22 | NUR ---
pt discharged home, no iv site at this time no distress noted pt able to make known. pt was asked to follow up with PCP.
--- NOTE | 2019-01-16 15:36 | Discharge Summary ---
CHIEF COMPLAINT: Abdominal pain and vomiting. FINAL DIAGNOSES: 1. Acute pancreatitis. 2. Acute cholecystitis. 3. Diabetes type 2. PROCEDURE: Laparoscopic cholecystectomy. HOSPITAL COURSE: A 43-year-old female with known history of diabetes type 2, hiatal hernia, brought to the ER with a 1-day history of upper abdominal pain radiating to chest area associated with nausea. No vomiting. No fever, chills, or shortness of breath. There are issues of postprandial bloating. Review and evaluation were conducted in the emergency room. The patient was demonstrating mid epigastric along with right upper quadrant tenderness and with further diagnostic x-rays of blood work performed. The patient was admitted to facility for care regarding findings of upper abdominal pain/nausea, acute pancreatitis, rule out gallbladder pancreatitis, diabetes type 2. We will obtain an ultrasound of the abdomen. We will obtain also a HIDA scan for ejection fraction. Request a GI follow. The patient was admitted to facility, underwent a GI evaluation regarding the lab findings revealing pancreatitis. The patient was reviewed by Dr. Terrell and with his evaluation, his assessment was middle-aged female, admitted with acute pancreatitis, probably idiopathic. Gallbladder disease is not being completely ruled out. Surgical followup with Dr. Castelan regarding the abdominal pain and he states that along with the findings that revealed acute pancreatitis, other diagnostic studies were showing that she had gallstones on ultrasound of the gallbladder, was set for the laparoscopic procedure per Dr. Castelan, and following his evaluation of the patient, his assessment was gallstone pancreatitis, which has improved. Plan is for laparoscopic cholecystectomy prior to discharge. Surgical procedure on 12/19/2018, preop diagnosis was gallstone pancreatitis. Postop diagnosis was the same. Procedure was laparoscopic cholecystectomy. Procedure was tolerated well, returned to recovery room in good condition. Estimated blood loss was 20 mL. There were no complications. Findings were cholelithiasis and cholecystitis. From the emergency room, the patient was placed on the Med-Surg floor, was started n.p.o., was given IV fluids, PPIs were being given. Some medications for pain control were also being met. Further diagnostic studies were being carried out. Her diet was being slowly advanced to clear liquid. Underwent the ultrasound of the abdomen and with HIDA scan, the pancreatitis was resolving. The issues of acute cholecystitis is now being addressed, was scheduled for the surgical procedure per Dr. Castelan. The procedure was carried out. Postprocedure, she was doing well. Continued to be managed on the Med-Surg floor. Her diet was able to be raised to a clear liquid diet, which she was tolerating well. Diet was scheduled to continue to be upgraded as she progressed in her stay and she was cleared for discharge and she was released home on 12/21/2018, in stable condition. IMAGING: Abdomen and pelvis CT, findings reveal acute pancreatitis. No associated fluid collection. Findings suggestive of esophagitis. Small uterine fibroids. HIDA scan shows an absence of filling of the gallbladder even following administration of morphine. These findings were compatible with diagnosis of acute cystic duct obstruction/acute cholecystitis. Abdomen ultrasound shows findings of cholelithiasis with gallbladder wall thickening, but negative sonographic Knapp sign. Pancreas was not well visualized. Otherwise unremarkable abdominal ultrasound. LABORATORY DATA: As she was continuing her stay and recovering from her procedure, the laboratory studies that were being carried out on her shows initial CBC, white cell count elevated at 11,700 followup white cell counts were normal. Initial H and H were 16.1, 45.0, final study of 11.6 and 35.6. Urinalysis was showing 6-10 rbc's by high-power field, 0-5 wbc's per high-power field, moderate amount of bacteria. Chemistries reveals initial electrolyte panel to be stable. Kidney functions are stable. Lipase level was at 456. Further chemistry studies reveals normal electrolytes. Glucose levels were stable. She continued to do well and was discharged as mentioned. She is able to be discharged home. She will continue on diet as instructed. No equipments or supplies were necessary. No drain or [place] was needed. Activity level as directed by me as well as by Dr. Castelan. She will be following up with me in my office in next 2-3 weeks. She will be reporting back to Dr. Castelan's office within 3 weeks per his discretion. She will be continued on Nexium 40 mg p.o. p.r.n. She will be watched for signs of abdominal distention, change in bowel habits, fever, nausea, foul-smelling drainage from the surgical sites, warm, tenderness to touch of surgical sites. These issues were to redevelop, the patient to contact at Dr. Castelan's office. However, the patient continued to respond unremarkable, she will be following up with me in my office within next 2-3 weeks. Dictated by Bharat Escudero AHP MD MARY Greer/MANDA /[id number]
== END 2018-12-21 12:04 | disposition home or self-care (01) | DRG 418 ==
LOC: ER 17:41 → ERHOLD 23:35 → MED/SURG 12-16 00:13 → OBSVTOIN 12-16 12:28
PROC: 0FT44ZZ Resection of Gallbladder, Percutaneous Endoscopic Approach (ICD-10-PCS; principal; 2018-12-19 13:49)
DX: K85.90 Acute pancreatitis without necrosis or infection, unspecified (principal); K81.0 Acute cholecystitis; K80.12 Calculus of gallbladder with acute and chronic cholecystitis without obstruction; E11.9 Type 2 diabetes mellitus without complications; K21.9 Gastro-esophageal reflux disease without esophagitis
CPT/HCPCS: 36415; 74177; 76700; 78227; 80053; 80061; 80076; 81001; 81025; 82150; 82948; 83690; 83735; 84100; 85025; 88304; 93005; 96372; 96374; 99284; A9537; G0378; J0461; J0500; J0690; J1100; J1885; J2001; J2250; J2270; J2405; J2550; J3010; J7030; Q9967

== ENCOUNTER → 2019-01-11 | Outpatient (CLI) | payer BC ==
--- NOTE | 2019-01-19 09:41 | Diagnostic Imaging Report ---
#[id number] - [id number] #BILATERAL DIGITAL SCREENING MAMMOGRAM WITH CAD: 01/11/2019 CLINICAL: Routine screening. Comparison is made to exam dated: 04/11/2013 mammogram - [facility]. Current study contains 4 films. There are scattered fibroglandular elements in both breasts. Current study was also evaluated with a Computer Aided Detection (CAD) system. No significant masses, calcifications, or other findings are seen in either breast. IMPRESSION: NEGATIVE There is no mammographic evidence of malignancy. A 1 year screening mammogram is recommended. The patient will be notified by letter of the results. DIVINA PUGA M.D. ct/penrad:01/18/2019 17:05:05 District Operations Manager: Linae SMITH)(M), [facility] letter sent: Normal Exam Mammogram BI-RADS: 1 Negative
== END ==
LOC: MAMMO 10:44
DX: Z12.31 Encounter for screening mammogram for malignant neoplasm of breast (principal)
CPT/HCPCS: 77067

== ENCOUNTER 2019-10-10 13:38 | Emergency (ER) | payer BC ==
[~2019-10-10] VITALS: Ht 157.5 cm; Wt 96.6 kg
--- OUTSIDE RECORDS SUMMARY | 2019-10-10 13:42 | XMS REPORT | Continuity of Care Document ---
Author Author [facility] t Organization [facility] Address [address] [place] [address] Phone Unavailable Care Team Providers Care Spice Miller Name Role Phone TOÑITO MONROY MD PCP TOÑITO MONROY Attphys Unavailable TOÑITO MONROY Admphys Unavailable Payers Payer Name Policy Type Policy Number Effective Date Expiration Date Pravin Marmolejo [facility] [id number] 2013 00:00:00 [facility] Problems Condition Name Condition Details Condition Category Status Onset Date Resolution Date Last Treatment Date Treating Clinician Comments Source Pancreatitis Pancreatitis Problem Active [facility] Allergies, Adverse Reactions, Alerts This patient has no known allergies or adverse reactions. Medications Ordered Medication Name Filled Medication Name Start Date Stop Da te Current Medication? Ordering Clinician Indication Dosage Frequency Signature (SIG) Comments Components Source Esomeprazole Magnesium (Nexium) 40 Mg Capsule.dr Sarkar prazole Magnesium (Nexium) 40 Mg Capsule. Yes 40 As Needed [facility] Sucralfate (Carafate) 1 Gm/10 Ml Oral.susp, 1 Gm Oral Sucralfate (Carafate) 1 Gm/10 Ml Oral.susp, 1 Gm Oral 2018-12-16 00:00:00 No 1 Four Times Daily [facility] Procedures Procedure Date / Time Performed Performing Clinician Ashley dunlap Laparoscopic cholecystectomy 2018-12-19 00:00:00 QUINCY GOMEZ [facility] US abdomen complete 2018-12-18 00:00:00 PRATIK TURNER [facility] Computed tomography of abdomen and pelvis with contrast 2018 00:00:00 JUWAN NUNEZ [facility] Encounters Start Date/Time End Date/Time Encounter Type Admission Type [facility] Care Facility Care Department Encounter ID Source 2018-12-16 12:28:00 2018-12-21 12:04:00 Discharged Inpatient 1 TOÑITO MONROY [facility] [id number] [facility] 2017-07-19 23:51:00 2017-07-20 01:42:00 Departed Emergency Room [facility] [id number] [facility] Results Test Description Test Time Test Comments Results Result Comments Source MAMMOGRAPHY DIGITAL SCR BILAT 2019-01-11 11:40:00 [place] [address] Patient Name: NINFA LEIGH MR #: [id number] : 1975 Age/Sex: 43/F Req #: [id number] Adm Physician: Ordered by: TOÑITO MONROY MD Report #: [id number] Location: MAMMO Room/Bed: Procedure: [id number] MG/MAMMOGRAPHY DIGITAL SCR BILAT Exam Date: 01/11/19 Exam Time: 1053 REPORT STATUS: Signed #[id number] - MGSCRBIL #BILATERAL DIGITAL SCREENING MAMMOGRAM WITH CAD: 01/11/2019 CLINICAL: Routine screening. Comparison is made to exam dated: 04/11/2013 mammogram - [facility]. Current study contains 4 films. There are scattered fibroglandular elements in both breasts. Current study was also evaluated with a Computer Aided Detection (CAD) system. No significant masses, calcifications, or other findings are seen in either breast. IMPRESSION: NEGATIVE There is no mammographic evidence of malignancy. A 1 year screening mammogram is recommended. The patient will be notified by letter of the results. DIVINA lewis/pastor:01/18/2019 17:05:05 Bakery Assistant: Hair SMITH)Ozzie), [facility] letter sent: Normal Exam Mammogram BI-RADS: 1 Negative Dictated By: DIVINA GRIFFITHS MD 04 Transcribed By: PASTOR on 01/18/191704 COPY TO: TOÑITO MONROY MD Bedside Glucose 2018-12-19 13:39:00 Test Item Bedside Glucose (test code = 19104-4) 77 70-120 M[facility]: [id number] [facility] 2018-12-18 20:19:00 [place] [address] Patient Name: NINFA LEIGH MR #: [id number] : 1975 Age/Sex: 43/F Req #: [id number] Adm Physician: TOÑITO MONROY MD Ordered by: TOÑITO MONROY MD Report #: [id number] Location: MED/SURG Room/Bed: [facility] Procedure: 0819-0 004 NM/HEPTOBILIARY W PHARM Exam Date: 12/18/18 Exam Time: 1615 REPORT STATUS: Signed HIDA Scan with Morphine Challenge Clinical information: 43 F with pancrea titis Report: Following the administration of 6.6 of Tc-99m mebrofenin, dyn amic images of the abdomen in the anterior projection were obtained through 60 minutes. At 2.5 hours post administration of the tracer, morphine sulfate 3 mg was administered via slow IV push and additional images were obtained throu gh 30 minutes. Perfusion to the liver is normal. Extraction of tracer by the liver parenchyma is normal. Tracer appears promptly within the biliary t ract. Tracer is seen within the small bowel by 6 minutes. The gallbladder do es not fill during the initial 60 minutes of dynamic imaging nor by 2.5 hours. Following administration of morphine, the gallbladder also does not fill. Impression: Absence of filling of the gallbladder, even following admi nistration of morphine, is compatible with the diagnosis of acute cystic duct obstruction/acute cholecystitis. Signed by: Dr. Hair Mcallister M.D. on 8:25 PM Dictated By: HAIR MCALLISTER MD 24 Transcribed By: KRISTINE on 12/18/182024 CO PY TO: TOÑITO MONROY MD US ABDOMEN KAGIZJET5742-30-31 09:55:00 [place] [address] Patient Name: NINFA LEIGH MR #: [id number] : 1975 Age/Sex: 43/F Req #: [id number] Adm Physician: TOÑITO MONROY MD Ordered by: PRATIK TURNER MD Report #: [id number] Location: MED/SURG Room/Bed: [facility] Procedure: 0819- 0002 US/US ABDOMEN COMPLETE Exam Date: 12/18/18 Exam Time: 08 REPORT STATUS: Signed Abdominal ultrasound. History: Pancreatitis. Comparison: CT . Discussion: Transverse and longitudinal images of the abdomen were obtained demonstrating a liver of normal size and echogenicity measuring 16.1 cm in length. The portal vein is patent with hepatopetal flow and is within normal limits measuring 11 mm in diameter. The biliary tree i s within normal limits with the common bile duct measuring 6 mm in diameter. T he gallbladder is filled with multiple shadowing stones. The gallbladder wall measures 6 mm in thickness.. The sonographic Knapp's sign was negative. The kidneys are normal in size and echogenicity bilaterally without e vidence of hydronephrosis, stones, or mass. The right kidney measures 10.7 cm and the left kidney measures 10.9 cm in length. The spleen is normal in size and appearance measuring 11.4 cm in length. The pancreas was mostly obsc ured by overlying bowel gas, but does appear echogenic in the visible head and proximal body. The abdominal aorta and IVC are within normal limits. There is no evidence of free fluid. IMPRESSION: Cholelithiasis with gallblad vonnie wall thickening, but negative sonographic Knapp sign. Pancreas not well v isualized. Otherwise unremarkable abdominal ultrasound. Signed by: Felipe Griffiths on 12/18/2018 10:12 AM Dictated By: DIVINA GRIFFITHS MD Electronical ly Signed By: DIVINA GRIFFITHS MD on 12/18/18 1012 Transcribed By: KRISTINE on 11/30 01/18 1012 COPY TO: PRATIK TURNER MD Total Qiawjeclf2019-12-46 07:35:00* Test Item Value Reference Range Interpretation Comments Total Bilirubin (test code = 1975-2) 0.9 0.2-1.2 [facility]Direct Aobjkcoek0142-16-37 07:35:00* Test Item Value Reference Range Interpretation Comments Direct Bilirubin (test code = 26013-5) 0.4 0.0-0.5 [facility] HospitalAspartate Amino Transf (AST/SGOT) 2018-12-18 07:35:00* Test Item Value Reference Range Interpretation Comments Aspartate Amino Transf (AST/SGOT) (test code = Aspartate Amino Transf (AST/SGOT)) 17 5-34 [facility] HospitalAlanine Aminotransferase (ALT/SGPT) 2018-12-18 07:35:00* Test Item Value Reference Range Interpretation Comments Alanine Aminotransferase (ALT/SGPT) (test code = 1742-6) 20 0-55 [facility]Total Isyfdww5975-17-66 07:35:00* Test Item Value Reference Range Interpretation Comments Total Protein (test code = 2885-2) 5.8 6.5-8.1 L [facility] HospitalAlbumin2019-08-19 07:35:00* Test Item Value Reference Range Interpretation Comments Albumin (test code = 1751-7) 2.9 3.5-5.0 L [facility] HospitalAlkaline Ojiojnjztmb7941-83-28 07:35:00* Test Item Value Reference Range Interpretation Comments Alkaline Phosphatase (test code = 6768-6) 71 40-150 [facility] HospitalAmylase Dfsrf5780-83-21 07:35:00* Test Item Value Reference Range Interpretation Comments Amylase Level (test code = 1798-8) 50 25-125 [facility] HospitalLipase2019-08-19 07:35:00* Test Item Value Reference Range Interpretation Comments Lipase (test code = 3040-3) 39 8-78 [facility] Maiyy4832-04-37 07:06:00* Test Item Value Reference Range Interpretation Comments Sodium Level (test code = 2951-2) 136 136-145 [facility] HospitalPotassium Zrfmb8115-57-63 07:06:00* Test Item Value Reference Range Interpretation Comments Potassium Level (test code = 2823-3) 3.6 3.5-5.1 [facility] HospitalChloride Xsilz0745-18-21 07:06:00* Test Item Value Reference Range Interpretation Comments Chloride Level (test code = 2075-0) 105 98-107 [facility] HospitalCarbon Dioxide Qqfym9812-15-85 07:06:00* Test Item Value Reference Range Interpretation Comments Carbon Dioxide Level (test code = 2028-9) 25 22-29 [facility] HospitalAnion Svl0221-40-70 07:06:00* Test Item Value Reference Range Interpretation Comments Anion Gap (test code = 72882-0) 9.6 8-16 [facility] HospitalBlood Urea Qywbnhis5186-98-39 07:06:00* Test Item Value Reference Range Interpretation Comments Blood Urea Nitrogen (test code = 3094-0) < 5 7-26 L [facility] HospitalCreatinine2019-08-19 07:06:00* Test Item Value Reference Range Interpretation Comments Creatinine (test code = 2160-0) 0.66 0.57-1.11 [facility] HospitalBUN/Creatinine Doega8204-08-43 07:06:00* Test Item Value Reference Range Interpretation Comments BUN/Creatinine Ratio (test code = 3097-3) 8 6-25 [facility] HospitalEstimat Glomerular Filtration Rate 2018-12-18 07:06:00* Test Item Value Reference Range Interpretation Comments Estimat Glomerular Filtration Rate (test code = 311697736) > 60 >60 Ranges were taken from the National Kidney Disease Education Program and the [facility] Kidney Foundation literature.Reference ranges:60 or greater: Ukxfla83-31 ( for 3 consecutive months): Chronic kidney disease 15 or less: Kidney failureTexas Children's HospitalGlucose Xkovy7437-47-93 07:06:00* Test Item Value Reference Range Interpretation Comments Glucose Level (test code = ROJ1193) 99 74-118 [facility] HospitalCalcium Tqkup0964-34-24 07:06:00* Test Item Value Reference Range Interpretation Comments Calcium Level (test code = 27722-6) 8.6 8.4-10.2 [facility] HospitalGlobulin2019-08-19 07:06:00* Test Item Value Reference Range Interpretation Comments Globulin (test code = 63985-8) 2.9 2.3-3.5 [facility] HospitalAlbumin/Globulin Lwhce2796-01-66 07:06:00 * Test Item Value Reference Range Interpretation Comments Albumin/Globulin Ratio (test code = 1759-0) 1.0 0.8-2.0 [facility] HospitalWhite Blood Lfqtn8479-23-40 06:59:00* Test Item Value Reference Range Interpretation Comments White Blood Count (test code = 6690-2) 9.41 4.8-10.8 [facility] HospitalRed Blood Tfjjj4090-61-07 06:59:00* Test Item Value Reference Range Interpretation Comments Red Blood Count (test code = 789-8) 3.92 3.6-5.1 [facility] HospitalHemoglobin2019-08-19 06:59:00* Test Item Value Reference Range Interpretation Comments Hemoglobin (test code = 25422-8) 11.6 12.0-16.0 L [facility] HospitalHematocrit2019-08-19 06:59:00* Test Item Value Reference Range Interpretation Comments Hematocrit (test code = 4544-3) 35.6 34.2-44.1 [facility] HospitalMean Corpuscular Fahews4334-19-19 06:59:00* Test Item Value Reference Range Interpretation Comments Mean Corpuscular Volume (test code = 787-2) 90.8 81-99 [facility] HospitalMean Corpuscular Qzsxsjkblt9195-68-89 06:59:00* Test Item Value Reference Range Interpretation Comments Mean Corpuscular Hemoglobin (test code = 785-6) 29.6 28-32 [facility] HospitalMean Corpuscular Hemoglobin Concent 2018-12-18 06:59:00* Test Item Value Reference Range Interpretation Comments Mean Corpuscular Hemoglobin Concent (test code = 786-4) 32.6 31-35 [facility] HospitalRed Cell Distribution Dzjhz1745-82-43 06:59:00* Test Item Value Reference Range Interpretation Comments Red Cell Distribution Width (test code = 23995-2) 12.9 11.7 -14.4 [facility] HospitalPlatelet Zfrhl9806-55-25 06:59:00* Test Item Value Reference Range Interpretation Comments Platelet Count (test code = 777-3) 229 140-360 [facility] HospitalNeutrophils (%) (Auto)2018-12-18 06:59:00 * Test Item Value Reference Range Interpretation Comments Neutrophils (%) (Auto) (test code = 33367-8) 67.4 38.7-80.0 [facility] HospitalLymphocytes (%) (Auto)2018-12-18 06:59:00 * Test Item Value Reference Range Interpretation Comments Lymphocytes (%) (Auto) (test code = 736-9) 23.0 18.0-39.1 [facility] HospitalMonocytes (%) (Auto)2018-12-18 06:59:00* Test Item Value Reference Range Interpretation Comments Monocytes (%) (Auto) (test code = 5905-5) 6.8 4.4-11.3 [facility] HospitalEosinophils (%) (Auto)2018-12-18 06:59:00 * Test Item Value Reference Range Interpretation Comments Eosinophils (%) (Auto) (test code = 713-8) 2.1 0.0-6.0 [facility] HospitalBasophils (%) (Auto)2018-12-18 06:59:00* Test Item Value Reference Range Interpretation Comments Basophils (%) (Auto) (test code = 706-2) 0.3 0.0-1.0 [facility] HospitalIM GRANULOCYTES %2018-12-18 06:59:00* Test Item Value Reference Range Interpretation Comments IM GRANULOCYTES % (test code = IM GRANULOCYTES %) 0.4 0.0- 1.0 [facility] HospitalNeutrophils # (Auto)2018-12-18 06:59:00* Test Item Value Reference Range Interpretation Comments Neutrophils # (Auto) (test code = 751-8) 6.3 2.1-6.9 [facility] HospitalLymphocytes # (Auto)2018-12-18 06:59:00* Test Item Value Reference Range Interpretation Comments Lymphocytes # (Auto) (test code = 77125-9) 2.2 1.0-3.2 [facility] HospitalMonocytes # (Auto)2018-12-18 06:59:00* Test Item Value Reference Range Interpretation Comments Monocytes # (Auto) (test code = 742-7) 0.6 0.2-0.8 [facility] HospitalEosinophils # (Auto)2018-12-18 06:59:00* Test Item Value Reference Range Interpretation Comments Eosinophils # (Auto) (test code = 711-2) 0.2 0.0-0.4 [facility] HospitalBasophils # (Auto)2018-12-18 06:59:00* Test Item Value Reference Range Interpretation Comments Basophils # (Auto) (test code = 704-7) 0.0 0.0-0.1 [facility] HospitalAbsolute Immature Granulocyte (auto 2018-12-18 06:59:00* Test Item Value Reference Range Interpretation Comments Absolute Immature Granulocyte (auto (johana t code = Absolute Immature Granulocyte (auto) 0.04 0-0.1 [facility] HospitalTriglycerides Svexs2776-06-11 10:52:00* Test Item Value Reference Range Interpretation Comments Triglycerides Level (test code = 2571-8) 103 0-149 [facility] HospitalCholesterol Kcuxa3264-79-95 10:52:00* Test Item Value Reference Range Interpretation Comments Cholesterol Level (test code = 2093-3) 134 0-199 Less than 200 mg/dL Low Lehn946 - 239 mg/dL Borderline Yild712 m g/dl and greater High Risk [facility] HospitalLDL Tzvnpkohkvh9968-16-75 10:52:00* Test Item Value Reference Range Interpretation Comments LDL Cholesterol (test code = 2089-1) 69 60-130 [facility] HospitalHDL Mkmjdnwfqzo8313-38-50 10:52:00* Test Item Value Reference Range Interpretation Comments HDL Cholesterol (test code = 2085-9) 44 40-60 [facility] HospitalCholesterol/HDL Wkpwq5025-57-75 10:52:00 * Test Item Value Reference Range Interpretation Comments Cholesterol/HDL Ratio (test code = 9830-1) 3.0 3.0-3.6 [facility] HospitalPhosphorus Hukcd7849-81-25 06:19:00* Test Item Value Reference Range Interpretation Comments Phosphorus Level (test code = JNB2102) 4.1 2.3-4.7 [facility] HospitalMagnesium Cgncj4972-19-28 06:19:00* Test Item Value Reference Range Interpretation Comments Magnesium Level (test code = 64426-8) 2.3 1.3-2.1 H [facility] HospitalCT ABDOMEN/PELVIS Q1010-05-10 21:27:00 [facility] [address] [place] [address] Patient Name: NINFA LEIGH MR #: [id number] : 1975 Age/Sex: 43/F Req #: [id number] Adm Physician: Ordered by: JUWAN NUNEZ MD Report #: [id number] Location: ER Room/Bed: Procedure: 36 CT/CT ABDOMEN/PELVIS W Exam Date: 12/15/18 Exam T dajuan: 2109 REPORT STATUS: Signed EXAM: CT of the abdomen and pelvis WITH contrast HISTORY: Stomach pain, e levated lipase, hiatal hernia COMPARISON: None. TECHNIQUE: The abdome n and pelvis were scanned utilizing a multidetector helical scanner. Coronal and sagittal reformats are provided. PROTOCOL: Routine IV CONTRAST: 100 cc of Isovue-370. ORAL CONTRAST: None, which limits sensitivity and specificity of the exam. RADIATION DOSE: Total DLP: 717.39 mGy*cm Estimated effective dose: (DLP x 0.015 x size factor) Dose modulation, iterative reconstruction, and/or we ight based adjustment of the mA/kV was utilized to reduce the radiation dose t o as low as reasonably achievable. COMPLICATIONS: None FIND INGS: LOWER THORAX: Diffuse thickening of the distal esophageal wall. HEPATOBILIARY: No mass. No biliary dilation. The gallbladder is contract ed, no calcified stone. SPLEEN: No splenomegaly. A 2.1 cm splenule anterior t o the spleen. PANCREAS: No focal masses or ductal dilatation. The pancreas ap pears edematous with fat stranding adjacent to the body and tail. No associate d fluid collection. ADRENALS: No discrete adrenal nodule. KIDNEYS/URETERS : No hydronephrosis, stones, or definite solid mass lesions. PELVIC ORGANS/BLADDER: The uterus is anteflexed. A 1.1 cm hypodensity near the rig ht side of the fundus, likely a small fibroid. GI TRACT: No dilation or wall thickening identified. The appendix is normal. PERITONEUM / RETR OPERITONEUM: No free air or fluid. LYMPH NODES: No pathologically enlarged lym ph node. VESSELS: Unremarkable. BONES and JOINTS: No aggressive osseous les ion or acute fracture. A 1.1 cm nonaggressive sclerotic density within the ri ght sacral ala, likely a small bone island. SOFT TISSUES: Unremarkable. IMPRESSION: 1. Acute pancreatitis, no associated fluid collection. 2. Findings suggestive of esophagitis. 3. Small uterine fibroid. Signed by: Jesús JesusOCori, M.M.M. on 12/15/2018 9:38 PM Dictated By: STEPH JALLOH DO 37 Transcribed By: KRISTINE on 12/15/182137 COPY TO: JUWAN NUNEZ MD Urine XCT0274-04-38 18:30:00* Test Item Value Reference Range Interpretation Comments Urine WBC (test code = 5821-4) 0-5 0-5 [facility] HospitalU[facility] ZCI5248-04-99 18:30:00* Test Item Value Reference Range Interpretation Comments Urine RBC (test code = 06579-4) 6-10 0-5 H [facility] HospitalUrine Duevwenr8779-38-24 18:30:00* Test Item Value Reference Range Interpretation Comments Urine Bacteria (test code = 29976-4) MODERATE NONE H [facility] HospitalUrine Epithelial Zlvpu9790-42-32 18:30:00 * Test Item Value Reference Range Interpretation Comments Urine Epithelial Cells (test code = 87701-8) MODERATE NONE [facility] HospitalUrine Mijzu4357-08-75 18:17:00* Test Item Value Reference Range Interpretation Comments Urine Color (test code = 5778-6) YELLOW YELLOW [facility] HospitalUrine Qkgnuqt6633-55-29 18:17:00* Test Item Value Reference Range Interpretation Comments Urine Clarity (test code = 84862-8) SL CLOUDY CLEAR [facility] HospitalUrine Specific Sszwnez7224-95-53 18:17:00 * Test Item Value Reference Range Interpretation Comments Urine Specific [place] (test code = 5811-5) 1.020 1.010-1.02 5 [facility] HospitalUrine fX9931-16-80 18:17:00* Test Item Value Reference Range Interpretation Comments Urine pH (test code = 06981-2) 6 5-7 [facility] Hospital[facility] Leukocyte Pxbulcnn1394-37-28 18:17:00* Test Item Value Reference Range Interpretation Comments Urine Leukocyte Esterase (test code = 24775-4) NEGATIVE NEGATIV E [facility] Cehvpbb4560-92-91 18:17:00* Test Item Value Reference Range Interpretation Comments Urine Nitrite (test code = 37985-4) NEGATIVE NEGATIVE [facility] Oakkmsz2280-53-84 18:17:00* Test Item Value Reference Range Interpretation Comments Urine Protein (test code = 12568-4) NEGATIVE NEGATIVE [facility] Glucose (UA)2018-12-15 18:17:00* Test Item Value Reference Range Interpretation Comments Urine Glucose (UA) (test code = 32338-2) NEGATIVE NEGATIVE [facility] Hpfgesh5420-81-55 18:17:00* Test Item Value Reference Range Interpretation Comments Urine Ketones (test code = 73346-1) NEGATIVE NEGATIVE [facility] Hcqkuxgzanmq0280-10-17 18:17:00* Test Item Value Reference Range Interpretation Comments Urine Urobilinogen (test code = 50086-3) 0.2 0.2-1 [facility] Svldcyqpb4122-51-62 18:17:00* Test Item Value Reference Range Interpretation Comments Urine Bilirubin (test code = 1977-8) NEGATIVE NEGATIVE [facility] Rmect7049-41-98 18:17:00* Test Item Value Reference Range Interpretation Comments Urine Blood (test code = 95104-5) TRACE NEGATIVE [facility] Tdjq0069-98-27 18:16:00* Test Item Value Reference Range Interpretation Comments Urine Test (test code = 2106-3) NEGATIVE NEGATIVE [facility] HospitalBedside Jbktizd6512-27-69 01:40:00* Test Item Value Reference Range Interpretation Comments Bedside Glucose (test code = 45664-9) 262 70-120 H Meter ID: [id number] Health Allenodium Level 2017-07-20 01:30:00* Test Item Value Reference Range Interpretation Comments Sodium Level (test code = 2951-2) 135 136-145 L [facility] HospitalPotassium Avamp5380-33-43 01:30:00* Test Item Value Reference Range Interpretation Comments Potassium Level (test code = 2823-3) 3.6 3.5-5.1 [facility] HospitalChloride Mtclp8129-45-16 01:30:00* Test Item Value Reference Range Interpretation Comments Chloride Level (test code = 2075-0) 98 98-107 [facility] HospitalCarbon Dioxide Xcblw2140-72-59 01:30:00* Test Item Value Reference Range Interpretation Comments Carbon Dioxide Level (test code = 2028-9) 27 22-29 [facility] HospitalAnion Dea5619-75-96 01:30:00* Test Item Value Reference Range Interpretation Comments Anion Gap (test code = 00332-3) 13.6 8-16 [facility] HospitalBlood Urea Ncixukiz8609-81-80 01:30:00* Test Item Value Reference Range Interpretation Comments Blood Urea Nitrogen (test code = 3094-0) 13 7-26 [facility] HospitalCreatinine2018-03-21 01:30:00* Test Item Value Reference Range Interpretation Comments Creatinine (test code = 2160-0) 0.96 0.57-1.11 [facility] HospitalBUN/Creatinine Vgkpz5669-52-56 01:30:00* Test Item Value Reference Range Interpretation Comments BUN/Creatinine Ratio (test code = 3097-3) 14 6-25 [facility] HospitalEstimat Glomerular Filtration Rate 2017-07-20 01:30:00* Test Item Value Reference Range Interpretation Comments Estimat Glomerular Filtration Rate (test code = 85392-1) 60- >60 Ranges were taken from the National Kidney Disease Education Program and the [facility] literature.Reference ranges:60 or greater: Hyldnr86-25 ( for 3 consecutive months): Chronic kidney disease 15 or less: Kidney failureTexas Children's HospitalGlucose Wqaet7778-71-60 01:30:00* Test Item Value Reference Range Interpretation Comments Glucose Level (test code = EPM3296) 267 74-118 H [facility] HospitalCalcium Zhgcf2040-17-90 01:30:00* Test Item Value Reference Range Interpretation Comments Calcium Level (test code = 01456-3) 9.6 8.4-10.2 [facility] HospitalTotal Yhkgzinqq5951-58-29 01:30:00* Test Item Value Reference Range Interpretation Comments Total Bilirubin (test code = 1975-2) 0.5 0.2-1.2 [facility] HospitalAspartate Amino Transf (AST/SGOT) 2017-07-20 01:30:00* Test Item Value Reference Range Interpretation Comments Aspartate Amino Transf (AST/SGOT) (test code = Aspartate Amino Transf (AST/SGOT)) 16 5-34 [facility]otransferase (ALT/SGPT) 2017-07-20 01:30:00* Test Item Value Reference Range Interpretation Comments Alanine Aminotransferase (ALT/SGPT) (test code = 1742-6) 20 0-55 [facility] [id number] 01:30:00* Test Item Value Reference Range Interpretation Comments Total Protein (test code = 2885-2) 7.8 6.5-8.1 [facility]Albumin2018-03-[facility] 01:30:00* Test Item Value Reference Range Interpretation Comments Albumin (test code = 1751-7) 3.9 3.5-5.0 [facility]Globulin2018-03-21 01:30:00* Test Item Value Reference Range Interpretation Comments Globulin (test code = 94331-5) 3.9 2.3-3.5 H [facility]Albumin/Globulin [id number] 01:30:00 * Test Item Value Reference Range Interpretation Comments Albumin/Globulin Ratio (test code = 1759-0) 1.0 0.8-2.0 [facility] HospitalAlkaline Crecrtoyqpn3563-17-92 01:30:00* Test Item Value Reference Range Interpretation Comments Alkaline Phosphatase (test code = 6768-6) 110 40-150 [facility]rine [id number] 00:51:00* Test Item Value Reference Range Interpretation Comments Urine WBC (test code = 5821-4) 0-5 0-5 [facility] [id number] 00:51:00* Test Item Value Reference Range Interpretation Comments Urine RBC (test code = 04899-2) 6-10 0-5 H [facility] [id number] 00:51:00* Test Item Value Reference Range Interpretation Comments Urine Bacteria (test code = 99213-7) FEW NONE [facility] Epithelial [id number] 00:51:00 * Test Item Value Reference Range Interpretation Comments Urine Epithelial Cells (test code = 49341-0) FEW NONE [facility] HospitalWhite Blood [id number] 00:43:00* Test Item Value Reference Range Interpretation Comments White Blood Count (test code = 6690-2) 8.90 4.8-10.8 [facility] Blood [id number] 00:43:00* Test Item Value Reference Range Interpretation Comments Red Blood Count (test code = 789-8) 5.20 3.6-5.1 H [facility]Hemoglobin2018-03-21 00:43:00* Test Item Value Reference Range Interpretation Comments Hemoglobin (test code = 79589-5) 14.8 12.0-16.0 [facility] HospitalHematocrit2018-03-21 00:43:00* Test Item Value Reference Range Interpretation Comments Hematocrit (test code = 4544-3) 44.5 34.2-44.1 H [facility] HospitalMean Corpuscular [id number] 00:43:00* Test Item Value Reference Range Interpretation Comments Mean Corpuscular Volume (test code = 787-2) 85.6 81-99 [facility]Mean Corpuscular [id number] 00:43:00* Test Item Value Reference Range Interpretation Comments Mean Corpuscular Hemoglobin (test code = 785-6) 28.5 28-32 [facility]Mean Corpuscular Hemoglobin Concent 2017-07-20 00:43:00* Test Item Value Reference Range Interpretation Comments Mean Corpuscular Hemoglobin Concent (test code = 786-4) 33.3 31-35 [facility] HospitalRed Cell Distribution [id number] 00:43:00* Test Item Value Reference Range Interpretation Comments Red Cell Distribution Width (test code = 99049-3) 13.2 11.7 -14.4 [facility] HospitalPlatelet [id number] 00:43:00* Test Item Value Reference Range Interpretation Comments Platelet Count (test code = 777-3) 267 140-360 [facility] HospitalNeutrophils (%) (Auto)2017-07-20 00:43:00 * Test Item Value Reference Range Interpretation Comments Neutrophils (%) (Auto) (test code = 18800-3) 59.6 38.7-80.0 [facility] HospitalLymphocytes (%) (Auto)2017-07-20 00:43:00 * Test Item Value Reference Range Interpretation Comments Lymphocytes (%) (Auto) (test code = 736-9) 33.1 18.0-39.1 [facility] HospitalMonocytes (%) (Auto)2017-07-20 00:43:00* Test Item Value Reference Range Interpretation Comments Monocytes (%) (Auto) (test code = 5905-5) 5.6 4.4-11.3 [facility] HospitalEosinophils (%) (Auto)2017-07-20 00:43:00 * Test Item Value Reference Range Interpretation Comments Eosinophils (%) (Auto) (test code = 713-8) 1.2 0.0-6.0 [facility] HospitalBasophils (%) (Auto)2017-07-20 00:43:00* Test Item Value Reference Range Interpretation Comments Basophils (%) (Auto) (test code = 706-2) 0.3 0.0-1.0 [facility] HospitalIM GRANULOCYTES %2017-07-20 00:43:00* Test Item Value Reference Range Interpretation Comments IM GRANULOCYTES % (test code = IM GRANULOCYTES %) 0.2 0.0- 1.0 [facility] HospitalNeutrophils # (Auto)2017-07-20 00:43:00* Test Item Value Reference Range Interpretation Comments Neutrophils # (Auto) (test code = 751-8) 5.3 2.1-6.9 [facility] HospitalLymphocytes # (Auto)2017-07-20 00:43:00* Test Item Value Reference Range Interpretation Comments Lymphocytes # (Auto) (test code = 90610-7) 3.0 1.0-3.2 [facility] HospitalMonocytes # (Auto)2017-07-20 00:43:00* Test Item Value Reference Range Interpretation Comments Monocytes # (Auto) (test code = 742-7) 0.5 0.2-0.8 [facility] HospitalEosinophils # (Auto)2017-07-20 00:43:00* Test Item Value Reference Range Interpretation Comments Eosinophils # (Auto) (test code = 711-2) 0.1 0.0-0.4 [facility] HospitalBasophils # (Auto)2017-07-20 00:43:00* Test Item Value Reference Range Interpretation Comments Basophils # (Auto) (test code = 704-7) 0.0 0.0-0.1 [facility] HospitalAbsolute Immature Granulocyte (auto 2017-07-20 00:43:00* Test Item Value Reference Range Interpretation Comments Absolute Immature Granulocyte (auto (johana t code = Absolute Immature Granulocyte (auto) 0.02 0-0.1 [facility] HospitalUrine [id number] 00:43:00* Test Item Value Reference Range Interpretation Comments Urine Color (test code = 5778-6) YELLOW YELLOW [facility] [id number] 00:43:00* Test Item Value Reference Range Interpretation Comments Urine Clarity (test code = 22828-5) CLOUDY CLEAR H [facility] HospitalUrine Specific [id number] 00:43:00 * Test Item Value Reference Range Interpretation Comments Urine Specific [place] (test code = 5811-5) 1.020 1.010-1.02 5 [facility] HospitalU[facility] [id number] 00:43:00* Test Item Value Reference Range Interpretation Comments Urine pH (test code = 62716-7) 6 5-7 [facility] Leukocyte Cgifisge3545-07-56 00:43:00* Test Item Value Reference Range Interpretation Comments Urine Leukocyte Esterase (test code = 5799-2) NEGATIVE NEGATIVE [facility] HospitalU[facility] Knmxfvs1135-20-07 00:43:00* Test Item Value Reference Range Interpretation Comments Urine Nitrite (test code = 38728-1) NEGATIVE NEGATIVE [facility] HospitalU[facility] [id number] 00:43:00* Test Item Value Reference Range Interpretation Comments Urine Protein (test code = 5804-0) NEGATIVE NEGATIVE [facility] HospitalU[facility] Glucose (UA)2017-07-20 00:43:00* Test Item Value Reference Range Interpretation Comments Urine Glucose (UA) (test code = 2349-9) 3+ NEGATIVE H [facility] HospitalU[facility] [id number] 00:43:00* Test Item Value Reference Range Interpretation Comments Urine Ketones (test code = 97583-8) NEGATIVE NEGATIVE [facility] Hospital[facility] Kjntfkbhhlhw1373-58-43 00:43:00* Test Item Value Reference Range Interpretation Comments Urine Urobilinogen (test code = 05401-4) 1 0.2-1 [facility] HospitalU[facility] [id number] 00:43:00* Test Item Value Reference Range Interpretation Comments Urine Bilirubin (test code = 1978-6) NEGATIVE NEGATIVE [facility] HospitalU[facility] [id number] 00:43:00* Test Item Value Reference Range Interpretation Comments Urine Blood (test code = 89913-9) TRACE NEGATIVE H [facility]
[2019-10-10] MEDS ORDERED: EYE IRRIGATION (OPTH) 120 ML BTL OP ONE (14:00)
[2019-10-10] MEDS ORDERED: FLUORESCEIN SOD(OPTH) 1 MG STRP OP ONE (14:00)
[2019-10-10] MEDS ORDERED: TETRACAINE HCL 0.5% OPTH SOLN 4 ML BTL OP ONE (14:00)
[2019-10-10 14:32] VITALS: BP 142/80
--- NOTE | 2019-10-10 14:42 | Emergency Department Note ---
History of Present Illnes History of Present Illness Chief Complaint: Eye, Ear, Nose, Throat, Dental History of Present Illness This is a 44 year old female PT STATES YESTERDAY SHE WAS CLEANING HER DEEP FREEZER WITH CLOROX AND KATHERINE AND SOME OF THE SOLUTION AND DIRTY WATER SPLASHED IN HER RIGHT EYE. Historian: Patient Arrival Mode: Car Warp Spooler Required: No Onset (how long ago): day(s) (1) Location: RIGHT EYE Radiation: Reports non-radiation Severity: mild Onset quality: gradual Timing of current episode: constant Chronicity: new Context: Denies recent illness Relieving factors: none Exacerbating factors: none Associated symptoms: Reports denies other symptoms Past Medical/Family History Physician Review I have reviewed the patient's past medical and family history. Any updates have been documented here. Past Medical History Recent Fever: No Clinical Suspicion of Infectio: No New/Unexplained Change in Ment: No Past Medical History: Diabetes Other Medical History: HIATAL HERNIA, sleep apnea Past Surgical History: None Other Surgery: L THUMB sx, OVARIES x1 removed Social History Smoking Cessation: Never Smoker Counseling Performed: No Alcohol Use: None Any Illegal Drug Use: No TB Exposure/Symptoms: No Physically hurt or threatened: No Family History Family history of heart diseas: No Other Last Tetanus: UTD Any Pre-Existing Lines (PICC,: No Is patient up to date on immun: Yes Last Flu: 2019 Last Pneumovax: NA Review of Systems Review of Systems Constitutional: Reports no symptoms EENTM: Reports tearing, Reports other (RIGHT EYE REDNESS) Cardiovascular: Reports no symptoms Respiratory: Reports no symptoms Gastrointestinal: Reports no symptoms Genitourinary: Reports no symptoms Musculoskeletal: Reports no symptoms Integumentary: Reports no symptoms Neurological: Reports no symptoms Psychological: Reports no symptoms Endocrine: Reports no symptoms Hematological/Lymphatic: Reports no symptoms Review of other systems All other systems reviewed and negative. Physical Exam Related Data Allergies: Coded Allergies: No Known Allergies (Unverified , 03/31/13) Triage Vital Signs Vital Signs Date Time Temp Pulse Resp B/P (MAP) Pulse Ox O2 Delivery O2 Flow Rate FiO2 10/10/19 13:46 98.7 75 16 144/95 99 Vital signs reviewed: Yes Physical Exam CONSTITUTIONAL Constitutional: Reports well-developed, Reports well-nourished HENT HENT: Reports normocephalic, Reports atraumatic, Reports oropharynx clear/moist, Reports nose normal HENT L/R: Reports left ext ear normal, Reports right ext ear normal EYES Eyes: Reports PERRL (RIGHT EYE WITH MILD SWELLING OF UPPER AND LOWER LIDS, INJECTED CONJ, IRRIGATED WITH SALINE, pH 7, NO ABRASION WITH FLUOROSCEIN STAIN), Reports EOM normal; Denies left eye discharge, Denies right eye discharge NECK Neck: Reports ROM normal PULMONARY Pulmonary: Reports effort normal, Reports breath sounds normal CARDIOVASCULAR Cardiovascular: Reports regular rhythm, Reports heart sounds normal, Reports capillary refill normal, Reports normal rate GASTROINTESTINAL Abdominal: Reports soft, Reports nontender, Reports bowel sounds normal GENITOURINARY Genitourinary: Reports exam deferred SKIN Skin: Reports warm, Reports dry MUSCULOSKELETAL Musculoskeletal: Reports ROM normal NEUROLOGICAL Neurological: Reports alert, Reports oriented x 3, Reports no gross motor or sensory deficits PSYCHOLOGICAL Psychological: Reports mood/affect normal, Reports judgement normal Assessment & Plan Medical Decision Making MDM F/U DR WARE Reassessment Reassessment DC WITH CORTISPORIN OPHTH SUSP 2 GTTS Q4HR X 7 DAYS, BACTRIM DS BID X 7 DAYS, F/U DR WARE TOMORROW Assessment & Plan Final Impression: (1) Chemical conjunctivitis of right eye Depart Disposition: HOME, SELF-CARE Last Vital Signs Date Time Temp Pulse Resp B/P (MAP) Pulse Ox O2 Delivery O2 Flow Rate FiO2 10/10/19 14:32 80 16 99 10/10/19 13:46 98.7 144/95 Home Meds Reported Medications Esomeprazole Magnesium (NEXIUM) 40 Mg Capsule., 40 MG PO PRN 03/31/13 Medications in the ED Eye Irrigation Solution 50 ml ONCE ONCE OP ; Start 10/10/19 at 14:00; Stop 10/10/19 at 14:01; Status DC Fluorescein Sodium 1 mg ONCE ONCE OP ; Start 10/10/19 at 14:00; Stop 10/10/19 at 14:01; Status DC Tetracaine HCl 1 ml ONCE ONCE OP ; Start 10/10/19 at 14:00; Stop 10/10/19 at 14:01; Status DC MANJINDER QUIROGA MD Oct 10, 2019 14:42
== END 2019-10-10 14:44 | disposition home or self-care (01) ==
LOC: ER 13:38
DX: H10.211 Acute toxic conjunctivitis, right eye (principal); E11.9 Type 2 diabetes mellitus without complications
CPT/HCPCS: 99283

== ENCOUNTER 2019-10-28 14:36 | Emergency (ER) | payer BC, OTHER ==
[~2019-10-28] VITALS: Ht 157.5 cm; Wt 96.6 kg
[2019-10-28] MEDS ORDERED: SODIUM CHLORIDE 0.9% 1000ML 1,000 ML IV STA (14:50)
[2019-10-28] MEDS ORDERED: ONDANSETRON HCL INJ 2MG/ML 2ML 2 MG/ML VIAL IV NR (15:00)
[2019-10-28] MEDS ORDERED: KETOROLAC TROMETHAMINE 30 MG/ML VIAL IV NR (15:00)
[2019-10-28 15:11] LABS: BASOPHILS % 0.2 % (0.0-1.0); EOSINOPHILS # (AUTO) 0.1 (0.0-0.4); EOSINOPHILS % 0.7 % (0.0-6.0); HEMATOCRIT 47.1 % (34.2-44.1); LYMPHOCYTES # (AUTO) 2.4 (1.0-3.2); LYMPHOCYTES % 27.7 % (18.0-39.1); MEAN CORPUSCULAR HEMOGLOBIN 27.8 pg (28-32); MEAN CORPUSCULAR HGB CONC 31.8 g/dL (31-35); MEAN CORPUSCULAR VOLUME 87.4 fL (81-99); MONOCYTES # (AUTO) 0.4 (0.2-0.8); MONOCYTES % 4.7 % (4.4-11.3); NEUTROPHILS # (AUTO) 5.8 (2.1-6.9); NEUTROPHILS % 66.2 % (38.7-80.0); PLATELET COUNT 250 x10e3/uL (140-360); RED BLOOD COUNT 5.39 x10e6/uL (3.6-5.1)
[2019-10-28 15:28] LABS: ALANINE AMINOTRANSFERASE 16 IU/L (0-55); ALBUMIN 3.8 g/dL (3.5-5.0); ALKALINE PHOSPHATASE 104 IU/L (40-150); ANION GAP 13.8 mmol/L (8-16); BLOOD UREA NITROGEN 11 mg/dL (7-26); BUN/CREATININE RATIO 13 (6-25); CALCIUM 9.8 mg/dL (8.4-10.2); CARBON DIOXIDE 25 mmol/L (22-29); CHLORIDE 102 mmol/L (98-107); CREATININE, SERUM 0.83 mg/dL (0.57-1.11); EST GLOMERULAR FILTRATION RATE > 60 ML/MIN (60-); GLUCOSE 325 mg/dL (74-118); LIPASE 42 U/L (8-78); POTASSIUM 3.8 mmol/L (3.5-5.1); SODIUM 137 mmol/L (136-145)
[2019-10-28 15:59] LABS: COLOR,URINE YELLOW (YELLOW); LEUKOCYTE ESTERASE ,URINE TRACE (NEGATIVE); NITRITE,URINE NEGATIVE (NEGATIVE); PREGNANCY TEST, URINE NEGATIVE (NEGATIVE)
[2019-10-28 16:00] LABS: BILIRUBIN,URINE NEGATIVE (NEGATIVE); CLARITY,URINE SL CLOUDY (CLEAR); KETONES,URINE NEGATIVE (NEGATIVE); PROTEIN,URINE DIPSTICK NEGATIVE (NEGATIVE); URINE UROBILINOGEN 1 mg/dL (0.2 - 1)
[2019-10-28 16:20] LABS: BACTERIA,URINE MANY /HPF; EPITHELIAL CELLS,URINE MANY /LPF; RBC,URINE 21-50 /HPF (0-5)
[2019-10-28 16:21] LABS: WBC,URINE (MAN) >50 /HPF (0-5)
[2019-10-28] MEDS ORDERED: CEFTRIAXONE SOD 1 GM/NS 50 ML 50 ML IV ONE (16:30)
[2019-10-28] MEDS ORDERED: INSULIN REGULAR, HUMAN 100 UNIT/1 ML 3ML VIAL IV NR (16:30)
--- NOTE | 2019-10-28 17:29 | Diagnostic Imaging Report ---
EXAM: CT Abdomen and Pelvis WITHOUT contrast INDICATION: Stone protocol. Right flank pain. COMPARISON: CT abdomen/pelvis 12/15/2018. Abdominal ultrasound 12/18/2018. TECHNIQUE: Abdomen and pelvis were scanned utilizing a multidetector helical scanner from the lung base to the pubic symphysis without administration of IV contrast. Absence of intravenous contrast decreases sensitivity for detection of focal lesions and vascular pathology. Coronal and sagittal reformations were obtained. Stone protocol was performed. IV CONTRAST: None. ORAL CONTRAST: None. RADIATION DOSE: Total DLP: 726 mGy*cm Estimated effective dose: (DLP x 0.015 x size factor) mSv COMPLICATIONS: None FINDINGS: LINES and TUBES: None. LOWER THORAX: Unremarkable HEPATOBILIARY: No focal hepatic lesions. No biliary ductal dilation. GALLBLADDER: Status post cholecystectomy. SPLEEN: No splenomegaly. PANCREAS: No focal masses or ductal dilatation. Fatty changes of the pancreas. ADRENALS: No adrenal nodules KIDNEYS/URETERS: No hydronephrosis. No cystic or solid mass lesions. No stones. GI TRACT: No abnormal distention, wall thickening, or evidence of bowel obstruction. Appendix is normal. Retained oral contrast within the colon. Moderate amount of stool in the colon. PELVIC ORGANS/BLADDER: Surgical clips in the right adnexa. Left ovary is mildly prominent, measuring up to 4.7 cm. LYMPH NODES: No lymphadenopathy. VESSELS: Mild scattered atherosclerotic calcifications. PERITONEUM / RETROPERITONEUM: No free air or fluid. BONES: Unremarkable. SOFT TISSUES: Unremarkable. IMPRESSION: No evidence of nephrolithiasis. Mildly prominent left ovary, measuring up to 4.7 cm, which may be physiologic, but for which a follow-up pelvic ultrasound is suggested for further evaluation. Given the absence of symptoms localizing to this location, nonemergent follow-up may be considered. Moderate amount of stool in the colon. Signed by: Dr. Sofy Calderon MD on 10/28/2019 5:25 PM
--- NOTE | 2019-10-28 17:44 | Emergency Department Note ---
History of Present Illnes History of Present Illness Chief Complaint: Abdominal Complaints History of Present Illness This is a 44 year old female RT SIDE ABD PAIN. STATES FEVER 100.9. APPEARS COMFORTABLE AND IN NO DISTRESS. AAOX4. AMBULATORY. PT STATES +COVID EXPOSURE. WORKS IN HOSPITAL HERE. PT STATES FEVER OF 100.5 AT OTHER JOB. Historian: Patient Arrival Mode: Car Lead Press Operator Required: No Onset (how long ago): day(s) Location: RIGHT FLANK Quality: PAIN Radiation: Reports non-radiation Severity: moderate Onset quality: gradual Timing of current episode: intermittent Progression: waxing and waning Chronicity: new Context: Denies recent illness Relieving factors: none Exacerbating factors: none Associated symptoms: Reports fever/chills; Denies cough, Denies shortness of breath Treatments prior to arrival: none Past Medical/Family History Physician Review I have reviewed the patient's past medical and family history. Any updates have been documented here. Past Medical History Recent Fever: No Clinical Suspicion of Infectio: No New/Unexplained Change in Ment: No Past Medical History: Diabetes Other Medical History: HIATAL HERNIA Sleep apnea MORBID OBESITY Past Surgical History: None Other Surgery: L THUMB sx OVARIES x1 removed Social History Smoking Cessation: Never Smoker Counseling Performed: No Alcohol Use: None Any Illegal Drug Use: No TB Exposure/Symptoms: No Physically hurt or threatened: No Family History Family history of heart diseas: No Other Last Tetanus: UTD Any Pre-Existing Lines (PICC,: No Review of Systems Review of Systems Constitutional: Reports as per HPI, Reports fever EENTM: Reports no symptoms Cardiovascular: Reports no symptoms Respiratory: Reports no symptoms Gastrointestinal: Reports as per HPI Genitourinary: Reports no symptoms Musculoskeletal: Reports no symptoms Integumentary: Reports no symptoms Neurological: Reports no symptoms Psychological: Reports no symptoms Endocrine: Reports no symptoms Hematological/Lymphatic: Reports no symptoms Physical Exam Related Data Allergies: Coded Allergies: No Known Allergies (Unverified , 03/31/13) Triage Vital Signs Vital Signs Date Time Temp Pulse Resp B/P (MAP) Pulse Ox O2 Delivery O2 Flow Rate FiO2 10/28/19 14:38 99.6 97 14 136/90 99 Vital signs reviewed: Yes Physical Exam CONSTITUTIONAL Constitutional: Present well-developed, Present well-nourished HENT HENT: Present normocephalic, Present atraumatic, Present oropharynx clear/moist, Present nose normal HENT L/R: Present left ext ear normal, Present right ext ear normal EYES Eyes: Reports PERRL, Reports conjunctivae normal NECK Neck: Present ROM normal PULMONARY Pulmonary: Present effort normal, Present breath sounds normal CARDIOVASCULAR Cardiovascular: Present regular rhythm, Present heart sounds normal, Present capillary refill normal, Present normal rate GASTROINTESTINAL Abdominal: Present right CVA tenderness GENITOURINARY Genitourinary: Present exam deferred SKIN Skin: Present warm, Present dry MUSCULOSKELETAL Musculoskeletal: Present ROM normal NEUROLOGICAL Neurological: Present alert, Present oriented x 3, Present no gross motor or sensory deficits PSYCHOLOGICAL Psychological: Present mood/affect normal, Present judgement normal Results Laboratory Result Diagram: 10/28/19 1450 10/28/19 1450 Laboratory Laboratory Tests Test 10/28/19 14:50 10/28/19 14:49 White Blood Count 8.77 x10e3/uL (4.8-10.8) Red Blood Count 5.39 x10e6/uL (3.6-5.1) Hemoglobin 15.0 g/dL (12.0-16.0) Hematocrit 47.1 % (34.2-44.1) Mean Corpuscular Volume 87.4 fL (81-99) Mean Corpuscular Hemoglobin 27.8 pg (28-32) Mean Corpuscular Hemoglobin Concent 31.8 g/dL (31-35) Red Cell Distribution Width 13.0 % (11.7-14.4) Platelet Count 250 x10e3/uL (140-360) Neutrophils (%) (Auto) 66.2 % (38.7-80.0) Lymphocytes (%) (Auto) 27.7 % (18.0-39.1) Monocytes (%) (Auto) 4.7 % (4.4-11.3) Eosinophils (%) (Auto) 0.7 % (0.0-6.0) Basophils (%) (Auto) 0.2 % (0.0-1.0) Neutrophils # (Auto) 5.8 (2.1-6.9) Lymphocytes # (Auto) 2.4 (1.0-3.2) Monocytes # (Auto) 0.4 (0.2-0.8) Eosinophils # (Auto) 0.1 (0.0-0.4) Basophils # (Auto) 0.0 (0.0-0.1) Absolute Immature Granulocyte (auto 0.04 x10e3/uL (0-0.1) Sodium Level 137 mmol/L (136-145) Potassium Level 3.8 mmol/L (3.5-5.1) Chloride Level 102 mmol/L (98-107) Carbon Dioxide Level 25 mmol/L (22-29) Anion Gap 13.8 mmol/L (8-16) Blood Urea Nitrogen 11 mg/dL (7-26) Creatinine 0.83 mg/dL (0.57-1.11) Estimat Glomerular Filtration Rate > 60 ML/MIN (60-) BUN/Creatinine Ratio 13 (6-25) Glucose Level 325 mg/dL (74-118) Calcium Level 9.8 mg/dL (8.4-10.2) Total Bilirubin 0.5 mg/dL (0.2-1.2) Aspartate Amino Transf (AST/SGOT) 12 IU/L (5-34) Alanine Aminotransferase (ALT/SGPT) 16 IU/L (0-55) Alkaline Phosphatase 104 IU/L (40-150) Total Protein 7.7 g/dL (6.5-8.1) Albumin 3.8 g/dL (3.5-5.0) Globulin 3.9 g/dL (2.3-3.5) Albumin/Globulin Ratio 1.0 (0.8-2.0) Lipase 42 U/L (8-78) Urine Color Yellow (YELLOW) Urine Clarity Sl cloudy (CLEAR) Urine pH 7 (5 - 7) Urine Specific [place] 1.025 (1.010-1.025) Urine Protein Negative (NEGATIVE) Urine Glucose (UA) 2+ (NEGATIVE) Urine Ketones Negative (NEGATIVE) Urine Blood Moderate (NEGATIVE) Urine Nitrite Negative (NEGATIVE) Urine Bilirubin Negative (NEGATIVE) Urine Urobilinogen 1 mg/dL (0.2 - 1) Urine Leukocyte Esterase Trace (NEGATIVE) Urine RBC 21-50 /HPF (0-5) Urine WBC >50 /HPF (0-5) Urine Epithelial Cells Many /LPF (NONE) Urine Bacteria Many /HPF (NONE) Urine Test Negative (NEGATIVE) Lab results reviewed: Yes Imaging Imaging results reviewed: Yes Impressions Procedure: [id number] CT/CT ABDOMEN/PELVIS WO Exam Date: 10/28/19 Exam Time: 1606 REPORT STATUS: Signed EXAM: CT Abdomen and Pelvis WITHOUT contrast INDICATION: Stone protocol. Right flank pain. COMPARISON: CT abdomen/pelvis 12/15/2018. Abdominal ultrasound 12/18/2018. TECHNIQUE: Abdomen and pelvis were scanned utilizing a multidetector helical scanner from the lung base to the pubic symphysis without administration of IV contrast. Absence of intravenous contrast decreases sensitivity for detection of focal lesions and vascular pathology. Coronal and sagittal reformations were obtained. Stone protocol was performed. IV CONTRAST: None. ORAL CONTRAST: None. RADIATION DOSE: Total DLP: 726 mGy*cm Estimated effective dose: (DLP x 0.015 x size factor) mSv COMPLICATIONS: None FINDINGS: LINES and TUBES: None. LOWER THORAX: Unremarkable HEPATOBILIARY: No focal hepatic lesions. No biliary ductal dilation. GALLBLADDER: Status post cholecystectomy. SPLEEN: No splenomegaly. PANCREAS: No focal masses or ductal dilatation. Fatty changes of the pancreas. ADRENALS: No adrenal nodules KIDNEYS/URETERS: No hydronephrosis. No cystic or solid mass lesions. No stones. GI TRACT: No abnormal distention, wall thickening, or evidence of bowel obstruction. Appendix is normal. Retained oral contrast within the colon. Moderate amount of stool in the colon. PELVIC ORGANS/BLADDER: Surgical clips in the right adnexa. Left ovary is mildly prominent, measuring up to 4.7 cm. LYMPH NODES: No lymphadenopathy. VESSELS: Mild scattered atherosclerotic calcifications. PERITONEUM / RETROPERITONEUM: No free air or fluid. BONES: Unremarkable. SOFT TISSUES: Unremarkable. IMPRESSION: No evidence of nephrolithiasis. Mildly prominent left ovary, measuring up to 4.7 cm, which may be physiologic, but for which a follow-up pelvic ultrasound is suggested for further evaluation. Given the absence of symptoms localizing to this location, nonemergent follow-up may be considered. Moderate amount of stool in the colon. Signed by: Dr. Sofy Calderon MD on 10/28/2019 5:25 PM Assessment & Plan Medical Decision Making MDM CBC, CHEM, UA/CX, LIPASE, CT ABD/PELVIS - R/O LEUKOCYTOSIS, RENAL INSUFF, UTI/PYELO, URETEROLITHIASIS, PANCREATITIS Reassessment Reassessment UTI- ROCEPHIN GIVEN, AWAIT CT RESULTS DC HOME ON OMNICEF 300 BID X 10 DAYS Assessment & Plan Final Impression: (1) Pyelonephritis Depart Disposition: HOME, SELF-CARE Last Vital Signs Date Time Temp Pulse Resp B/P (MAP) Pulse Ox O2 Delivery O2 Flow Rate FiO2 10/28/19 14:38 99.6 97 14 136/90 99 Home Meds Reported Medications Esomeprazole Magnesium (NEXIUM) 40 Mg Capsule.dr, 40 MG PO PRN 03/31/13 Medications in the ED Ondansetron HCl 4 mg ONCE IV Last administered on 10/28/19at 16:33; Admin Dose 4 MG; Start 10/28/19 at 15:00; Stop 10/28/19 at 16:00; Status DC Ketorolac Tromethamine 30 mg ONCE IV Last administered on 10/28/19at 16:33; Admin Dose 30 MG; Start 10/28/19 at 15:00; Stop 10/28/19 at 16:00; Status DC Sodium Chloride 1,000 ml @ 0 mls/hr Q0M STAT IV Last administered on 10/28/19at 16:33; Admin Dose 999 MLS/HR; Start 10/28/19 at 14:50; Stop 10/28/19 at 14:53; Status DC Ceftriaxone Sodium 50 ml @ 100 mls/hr ONCE ONCE IV Last administered on 10/28/19at 16:50; Admin Dose 100 MLS/HR; Start 10/28/19 at 16:30; Stop 10/28/19 at 16:59; Status DC Insulin Human Regular 6 unit ONCE IV Last administered on 10/28/19at 16:51; Admin Dose 6 UNIT; Start 10/28/19 at 16:30; Stop 10/28/19 at 17:59 MANJINDER QUIROGA MD Oct 28, 2019 17:44
== END 2019-10-28 18:36 | disposition home or self-care (01) ==
LOC: ER 14:43
DX: R10.9 Unspecified abdominal pain (principal); M54.5 Low back pain; R50.9 Fever, unspecified; E11.65 Type 2 diabetes mellitus with hyperglycemia; Z11.59 Encounter for screening for other viral diseases; E66.01 Morbid (severe) obesity due to excess calories
CPT/HCPCS: 36415; 74176; 80053; 81001; 81025; 83690; 85025; 87086; 87635; 99284; J0696; J1817; J1885; J2405; J7030

== ENCOUNTER → 2020-05-08 | Outpatient (CLI) | payer OTHER ==
[~2020-05-08] MED LIST changes: +COVID-19 VACC, MRNA(MODERNA)/PF 100 MCG/0.5 ML VIAL IM ONE
== END ==
LOC: VACCPMC 16:35
DX: Z23 Encounter for immunization (principal); Z20.822 Contact with and (suspected) exposure to COVID-19

== ENCOUNTER → 2020-06-08 | Outpatient (CLI) | payer OTHER | END | DRG 951 | LOC: VACCPMC 12:12 | DX: Z23 Encounter for immunization (principal); Z20.822 Contact with and (suspected) exposure to COVID-19 | CPT/HCPCS: 0012A; 91301 ==